=== PATIENT | male | born 1950 | race Caucasian/White ===

== ENCOUNTER → 2017-09-19 09:34 | Outpatient (CLI) | payer MEDICARE, BC, SELFPAY ==
[2017-09-19 10:16] LABS: BUN Creatinine Ratio 21.3 (6-22); Blood Urea Nitrogen 17 mg/dL (9-20); Calcium 9.4 mg/dL (8.4-10.2); Carbon Dioxide 29 mmol/L (22-32); Chloride 101 mmol/L (98-107); Cholesterol 219 mg/dL (140-199); Estimated Glomerular Filt Rate > 60.0 mL/min (>60); Glucose 115 mg/dL (80-110); HDL Cholesterol 67 mg/dL (40-60); HEMOLYSIS < 15 (0-50); LDL Cholesterol Calculated 113 mg/dL (<100); Potassium 4.6 mmol/L (3.4-5.1); Sodium 141 mmol/L (137-145); Triglycerides 193 mg/dL (35-150); Uric Acid 5.6 mg/dL (3.5-8.5)
== END ==
PROVIDERS: PCP Physician Assistant; Visit Provider Physician Assistant
DX: I10 Essential (primary) hypertension (principal); E78.2 Mixed hyperlipidemia; M10.00 Idiopathic gout, unspecified site
CPT/HCPCS: 36415; 80048; 80061; 84550

== ENCOUNTER → 2017-09-27 08:18 | Outpatient (CLI) | payer MEDICARE, BC, SELFPAY ==
--- NOTE | 2017-09-27 08:19 | DI.ECHO.S_ITS ---
[facility] +---------+ : : [address] : [address] : : : : [id number] : : : : Phone: [phone]+ Echocardiogram Report + + :Name: YAO MCFADDEN Study Date: 09/27/2017 Height: 71 in : :[facility] Exam Location: [facility] Weight: 224 lb : : Gender: Male BSA: 2.2 m2 : :: 1950 Age: 67 yrs BP: 162/78 mmHg: :Reason For Study: HTN, MURMUR : : Performed By: Shamar Vazquez : :Referring: TAYLOR BAEZ : + + Interpretation Summary The study quality was technically difficult. The ejection fraction is estimated to be 60-65%. The left atrium is mildly dilated. There is mild mitral regurgitation. The ascending aorta is mildly enlarged. Procedure: A two-dimensional transthoracic echocardiogram with color flow and Doppler was performed. The study quality was technically difficult. There is no prior echocardiogram noted for this patient. The patient was in normal sinus rhythm during the exam. Left Ventricle: The left ventricle is normal in size. There is normal left ventricular wall thickness. The ejection fraction is estimated to be 60-65%. There are no obvious focal wall motion abnormalities noted but poor endocardial definition reduces the sensitivity for the detection of such. Right Ventricle: The right ventricle is normal in size and function. Atria: The left atrium is mildly dilated. Right atrial size is normal. The interatrial septum is intact with no evidence for an atrial septal defect. Mitral Valve: The mitral valve is grossly normal. There is mild mitral regurgitation. PISA could not be reliably performed due to 'poor color doppler quality'. Aortic Valve: The aortic valve is grossly normal. There is no aortic valve stenosis. No aortic regurgitation is present. Tricuspid Valve: The tricuspid valve is not well visualized, but is grossly normal. There is trace tricuspid regurgitation. Pulmonary artery pressures cannot be estimated because of the lack of a measurable TR jet velocity. Pulmonic Valve: The pulmonic valve is not well visualized. There is trace pulmonic regurgitation. Great Vessels: The aortic root is normal size. The ascending aorta is mildly enlarged. The pulmonary artery is normal size. The IVC is of normal diameter and collapses greater than 50% with a sniff. This suggests a low right atrial pressure of 3 mm Hg. Pericardium/ Pleura There is no pericardial effusion. There is no pleural effusion. MMode/2D Measurements & Calculations LVIDd: 4.9 cm Ao root diam: 3.7 cm LVIDs: 2.5 cm Aortic Jxn: 2.8 cm FS: 49.1 % asc Aorta Diam: 3.6 cm IVSd: 1.1 cm Ao Arch Diam (Prox Trans): 3.0 cm LVPWd: 0.96 cm LV walker. diameter/BSA (cm/m^2): 2.2 LV sys. diameter/BSA (cm/m^2): 1.1 LA dimension: 5.2 cm RA long axis: 4.5 cm LA A2 area: 21.4 cm2 RA area: 16.9 cm2 LA A4 area: 23.0 cm2 RA vol: 53.6 ml LA length (vol): 5.6 cm RA : 24.2 ml/m2 LA vol: 74.8 ml IVC diam: 1.3 cm LA vol index: 33.8 ml/m2 Doppler Measurements & Calculations Ao V2 max: 137.0 cm/sec MV E max cristiano: 84.4 cm/sec Ao V2 mean: 92.3 cm/sec MV A max cristiano: 99.9 cm/sec Ao max P.5 mmHg MV E/A: 0.85 Ao mean P.8 mmHg Med Peak E' Cristiano: 8.1 cm/sec Ao V2 VTI: 25.1 cm E/E' med: 10.5 Lat Peak E' Cristiano: 10.4 cm/sec E/E' lat: 8.1 E/e' average: 9.3 MV dec time: 0.19 sec PA V2 max: 89.9 cm/sec Pulm A Revs Cristiano: 34.3 cm/sec PA V2 mean: 66.5 cm/sec PA mean P.0 mmHg PA pr(Accel): 46.6 mmHg PA Accel Time: 0.08 sec Reading Physician:09:52 AM
== END ==
PROVIDERS: PCP Physician Assistant; Visit Provider Physician Assistant
DX: R01.1 Cardiac murmur, unspecified (principal); I10 Essential (primary) hypertension
CPT/HCPCS: 93306

== ENCOUNTER → 2017-11-20 07:03 | Outpatient (CLI) | payer MEDICARE, BC, SELFPAY ==
[2017-11-20 08:43] LABS: Alanine Aminotransferase 14 IU/L (21-72); Albumin Globulin Ratio 1.3 (1.0-2.8); Alkaline Phosphatase 67 U/L (38-126); Aspartate Aminotransferase 21 IU/L (17-59); BUN Creatinine Ratio 26.3 (6-22); Bilirubin Total 0.5 mg/dL (0.2-1.3); Blood Urea Nitrogen 21 mg/dL (9-20); Calcium 9.2 mg/dL (8.4-10.2); Carbon Dioxide 28 mmol/L (22-32); Chloride 103 mmol/L (98-107); Cholesterol 214 mg/dL (140-199); Estimated Glomerular Filt Rate > 60.0 mL/min (>60); Globulin 3.1 g/dL (1.7-4.1); Glucose 94 mg/dL (80-110); HDL Cholesterol 59 mg/dL (40-60); HEMOLYSIS < 15 (0-50); LDL Cholesterol Calculated 126 mg/dL (<100); Potassium 4.3 mmol/L (3.4-5.1); Sodium 140 mmol/L (137-145); Total Protein 7.1 g/dL (6.3-8.2); Triglycerides 144 mg/dL (35-150)
[2017-11-20 08:55] LABS: C-Reactive Protein Quant < 0.5 mg/dL (<1.0)
== END ==
PROVIDERS: PCP Physician Assistant; Visit Provider Internal Medicine Cardiovascular Disease
DX: E78.2 Mixed hyperlipidemia (principal)
CPT/HCPCS: 36415; 80053; 80061; 86140

== ENCOUNTER → 2018-06-11 08:14 | Outpatient (CLI) | payer MEDICARE, BC, SELFPAY ==
[2018-06-11 09:48] LABS: Alanine Aminotransferase 21 IU/L (21-72); Albumin 4.5 g/dL (3.5-5.0); Albumin Globulin Ratio 1.4 (1.0-2.8); Alkaline Phosphatase 74 U/L (38-126); Aspartate Aminotransferase 28 IU/L (17-59); BUN Creatinine Ratio 18.9 (6-22); Bilirubin Total 0.4 mg/dL (0.2-1.3); Blood Urea Nitrogen 17 mg/dL (9-20); Calcium 9.5 mg/dL (8.4-10.2); Carbon Dioxide 27 mmol/L (22-32); Chloride 101 mmol/L (98-107); Cholesterol 195 mg/dL (140-199); Estimated Glomerular Filt Rate > 60.0 mL/min (>60); Globulin 3.2 g/dL (1.7-4.1); Glucose 107 mg/dL (80-110); HDL Cholesterol 83 mg/dL (40-60); HEMOLYSIS < 15 (0-50); LDL Cholesterol Calculated 77 mg/dL (<100); Potassium 4.4 mmol/L (3.4-5.1); Sodium 138 mmol/L (137-145); Total Protein 7.7 g/dL (6.3-8.2); Triglycerides 173 mg/dL (35-150); Uric Acid 5.1 mg/dL (3.5-8.5)
[2018-06-11 10:35] LABS: Microalbumi Creatinin Ratio Ur 5.7 ug/mg CR (<30); Microalbumin Urine Random 0.7 mg/dL (0-1.6)
== END ==
PROVIDERS: PCP Physician Assistant; Visit Provider Physician Assistant
DX: E78.2 Mixed hyperlipidemia (principal); I10 Essential (primary) hypertension; R01.1 Cardiac murmur, unspecified; M10.00 Idiopathic gout, unspecified site
CPT/HCPCS: 36415; 80053; 80061; 82043; 82570; 84550

== ENCOUNTER → 2018-12-11 08:24 | Outpatient (CLI) | payer MEDICARE, BC, SELFPAY ==
[2018-12-11 09:58] LABS: Potassium 4.2 mmol/L (3.4-5.1)
[2018-12-11 10:00] LABS: Alanine Aminotransferase 20 IU/L (21-72); Albumin 4.4 g/dL (3.5-5.0); Albumin Globulin Ratio 1.3 (1.0-2.8); Alkaline Phosphatase 101 U/L (38-126); Aspartate Aminotransferase 36 IU/L (17-59); BUN Creatinine Ratio 18.8 (6-22); Bilirubin Total 0.6 mg/dL (0.2-1.3); Blood Urea Nitrogen 15 mg/dL (9-20); Calcium 9.3 mg/dL (8.4-10.2); Carbon Dioxide 28 mmol/L (22-32); Chloride 101 mmol/L (98-107); Cholesterol 189 mg/dL (140-199); Estimated Glomerular Filt Rate > 60.0 mL/min (>60); Globulin 3.5 g/dL (1.7-4.1); Glucose 106 mg/dL (80-110); HDL Cholesterol 68 mg/dL (40-60); HEMOLYSIS 26 (0-50); LDL Cholesterol Calculated 66 mg/dL (<100); Sodium 139 mmol/L (137-145); Total Protein 7.9 g/dL (6.3-8.2); Triglycerides 277 mg/dL (35-150); Uric Acid 4.7 mg/dL (3.5-8.5)
[2018-12-11 10:16] LABS: Creatinine Urine Random 110.8 mg/dL
[2018-12-11 10:22] LABS: Microalbumi Creatinin Ratio Ur 5.4 ug/mg CR (<30); Microalbumin Urine Random < 0.6 mg/dL (0-1.6)
[2018-12-11 10:26] LABS: Prostate Specific Antigen Scrn 0.457 ng/mL (0.1-4.0)
== END ==
PROVIDERS: PCP Physician Assistant; Visit Provider Physician Assistant
DX: E78.2 Mixed hyperlipidemia (principal); I10 Essential (primary) hypertension; M10.00 Idiopathic gout, unspecified site; Z12.5 Encounter for screening for malignant neoplasm of prostate
CPT/HCPCS: 36415; 80053; 80061; 82043; 82570; 84550; G0103

== ENCOUNTER → 2018-12-12 11:38 | Outpatient (CLI) | payer MEDICARE, BC, SELFPAY ==
[2018-12-14 17:34] LABS: Fecal Immunochemical Test DETECTED (NOT DETECTED)
== END ==
PROVIDERS: PCP Physician Assistant; Visit Provider Physician Assistant
DX: Z12.11 Encounter for screening for malignant neoplasm of colon (principal)
CPT/HCPCS: 82274

== ENCOUNTER → 2019-01-02 08:05 | Outpatient (CLI) | payer MEDICARE, BC, SELFPAY ==
[2019-01-02 09:38] LABS: BUN Creatinine Ratio 23.8 (6-22); Blood Urea Nitrogen 19 mg/dL (9-20); Calcium 9.6 mg/dL (8.4-10.2); Carbon Dioxide 31 mmol/L (22-32); Chloride 97 mmol/L (98-107); Estimated Glomerular Filt Rate > 60.0 mL/min (>60); Glucose 111 mg/dL (80-110); HEMOLYSIS < 15 (0-50); Potassium 4.1 mmol/L (3.4-5.1); Sodium 137 mmol/L (137-145)
== END ==
PROVIDERS: PCP Physician Assistant; Visit Provider Internal Medicine Cardiovascular Disease
DX: I10 Essential (primary) hypertension (principal)
CPT/HCPCS: 36415; 80048

== ENCOUNTER → 2019-07-15 07:13 | Outpatient (CLI) | payer MEDICARE, BC, SELFPAY ==
[2019-07-15 08:06] LABS: Alanine Aminotransferase 17 IU/L (<50); Albumin 4.3 g/dL (3.5-5.0); Albumin Globulin Ratio 1.3 (1.0-2.8); Alkaline Phosphatase 79 U/L (38-126); Aspartate Aminotransferase 40 IU/L (17-59); BUN Creatinine Ratio 26.3 (6-22); Bilirubin Total 0.6 mg/dL (0.2-1.3); Blood Urea Nitrogen 20 mg/dL (9-20); Calcium 9.7 mg/dL (8.4-10.2); Carbon Dioxide 29 mmol/L (22-32); Chloride 102 mmol/L (98-107); Cholesterol 200 mg/dL (140-199); Estimated Glomerular Filt Rate > 60.0 mL/min (>60); Globulin 3.2 g/dL (1.7-4.1); Glucose 117 mg/dL (80-110); HDL Cholesterol 79 mg/dL (40-60); HEMOLYSIS 20 (0-50); LDL Cholesterol Calculated 75 mg/dL (<100); Potassium 4.4 mmol/L (3.4-5.1); Sodium 138 mmol/L (137-145); Total Protein 7.5 g/dL (6.3-8.2); Triglycerides 228 mg/dL (35-150)
== END ==
PROVIDERS: PCP Family Medicine; Referring Provider Internal Medicine Cardiovascular Disease; Visit Provider Internal Medicine Cardiovascular Disease
DX: E78.2 Mixed hyperlipidemia (principal)
CPT/HCPCS: 36415; 80053; 80061

== ENCOUNTER → 2020-08-22 07:52 | Outpatient (CLI) | payer MEDICARE, BC, SELFPAY ==
[2020-08-22 09:41] LABS: Alanine Aminotransferase 14 IU/L (<50); Albumin 4.1 g/dL (3.5-5.0); Albumin Globulin Ratio 1.3 (1.0-2.8); Alkaline Phosphatase 74 U/L (38-126); Aspartate Aminotransferase 33 IU/L (17-59); BUN Creatinine Ratio 19.5 (6-22); Bilirubin Total 0.4 mg/dL (0.2-1.3); Blood Urea Nitrogen 16 mg/dL (9-20); Calcium 9.5 mg/dL (8.4-10.2); Carbon Dioxide 28 mmol/L (22-32); Chloride 102 mmol/L (98-107); Cholesterol 198 mg/dL (140-199); Estimated Glomerular Filt Rate > 60.0 mL/min (>60); Globulin 3.1 g/dL (1.7-4.1); Glucose 108 mg/dL (80-110); HDL Cholesterol 72 mg/dL (40-60); HEMOLYSIS < 15 (0-50); LDL Cholesterol Calculated 81 mg/dL (<100); Potassium 3.8 mmol/L (3.4-5.1); Sodium 139 mmol/L (137-145); Total Protein 7.2 g/dL (6.3-8.2); Triglycerides 226 mg/dL (35-150)
== END ==
PROVIDERS: PCP Family Medicine; Referring Provider Internal Medicine Cardiovascular Disease; Visit Provider Internal Medicine Cardiovascular Disease
DX: E78.2 Mixed hyperlipidemia (principal)
CPT/HCPCS: 36415; 80053; 80061

== ENCOUNTER → 2021-11-13 07:47 | Outpatient (CLI) | payer MEDICARE, BC, SELFPAY ==
[2021-11-13 09:58] LABS: Alanine Aminotransferase 15 IU/L (<50); Albumin 3.9 g/dL (3.5-5.0); Albumin Globulin Ratio 1.4 (1.0-2.8); Alkaline Phosphatase 71 U/L (38-126); Aspartate Aminotransferase 32 IU/L (17-59); BUN Creatinine Ratio 21.3 (6-22); Bilirubin Total 0.4 mg/dL (0.2-1.3); Blood Urea Nitrogen 17 mg/dL (9-20); Calcium 8.9 mg/dL (8.4-10.2); Carbon Dioxide 29 mmol/L (22-32); Chloride 102 mmol/L (98-107); Cholesterol 172 mg/dL (140-199); Estimated Glomerular Filt Rate > 60 mL/min (>60); Globulin 2.7 g/dL (1.7-4.1); Glucose 97 mg/dL (80-110); HDL Cholesterol 70 mg/dL (40-60); HEMOLYSIS < 15 (0-50); LDL Cholesterol Calculated 80 mg/dL (<100); Potassium 4.2 mmol/L (3.4-5.1); Sodium 138 mmol/L (137-145); Total Protein 6.6 g/dL (6.3-8.2); Triglycerides 109 mg/dL (35-150); Uric Acid 5.7 mg/dL (3.5-8.5)
== END ==
PROVIDERS: PCP Family Medicine; Referring Provider Internal Medicine Cardiovascular Disease; Visit Provider Internal Medicine Cardiovascular Disease
DX: I10 Essential (primary) hypertension (principal); E78.2 Mixed hyperlipidemia
CPT/HCPCS: 36415; 80053; 80061; 84550

== ENCOUNTER → 2022-11-22 10:26 | Outpatient (CLI) | payer MEDICARE, BC, SELFPAY ==
[2022-11-22 11:20] LABS: Alanine Aminotransferase 18 IU/L (<50); Albumin 4.2 g/dL (3.5-5.0); Albumin Globulin Ratio 1.3 (1.0-2.8); Alkaline Phosphatase 89 U/L (38-126); Aspartate Aminotransferase 38 IU/L (17-59); BUN Creatinine Ratio 20.5 (6-22); Bilirubin Total 0.6 mg/dL (0.2-1.3); Blood Urea Nitrogen 15 mg/dL (9-20); Calcium 8.8 mg/dL (8.4-10.2); Carbon Dioxide 28 mmol/L (22-32); Chloride 101 mmol/L (98-107); Cholesterol 180 mg/dL (140-199); Estimated Glomerular Filt Rate > 60 mL/min (>60); Globulin 3.2 g/dL (1.7-4.1); Glucose 113 mg/dL (80-110); HDL Cholesterol 82 mg/dL (40-60); HEMOLYSIS < 15 (0-50); LDL Cholesterol Calculated 64 mg/dL (<100); Potassium 3.6 mmol/L (3.4-5.1); Sodium 136 mmol/L (137-145); Total Protein 7.4 g/dL (6.3-8.2); Triglycerides 169 mg/dL (35-150)
== END ==
PROVIDERS: Referring Provider Internal Medicine Cardiovascular Disease; Visit Provider Internal Medicine Cardiovascular Disease
DX: I10 Essential (primary) hypertension (principal)
CPT/HCPCS: 36415; 80053; 80061

== ENCOUNTER → 2022-12-07 07:18 | Outpatient (CLI) | payer MEDICARE, BC, SELFPAY ==
[2022-12-07 08:05] LABS: BUN Creatinine Ratio 23.3 (6-22); Blood Urea Nitrogen 17 mg/dL (9-20); Calcium 9.1 mg/dL (8.4-10.2); Carbon Dioxide 27 mmol/L (22-32); Chloride 102 mmol/L (98-107); Estimated Glomerular Filt Rate > 60 mL/min (>60); Glucose 105 mg/dL (80-110); HEMOLYSIS < 15 (0-50); Sodium 138 mmol/L (137-145)
== END ==
PROVIDERS: Referring Provider Internal Medicine Cardiovascular Disease; Visit Provider Internal Medicine Cardiovascular Disease
DX: I10 Essential (primary) hypertension (principal)
CPT/HCPCS: 36415; 80048

== ENCOUNTER → 2022-12-19 08:05 | Outpatient (CLI) | payer MEDICARE, BC, SELFPAY ==
--- NOTE | 2022-12-19 | DI.ECHO.S_ITS ---
[facility]---------+ [facility] +---------+ : : [address] : : : : [id number] : : : : Phone: [phone]+ Echocardiogram Report + + :Name: YAO MCFADDEN Study Date: 12/19/2022 Height: 71 in : :[facility] ReadingLocation: Weight: 213 lb : : Gender: Male BSA: 2.2 m2 : :: 1950 Age: 72 yrs BP: 138/79 mmHg: :Reason For Study: MITRAL INSUFFICIENCY : :Ordering Physician: : :KEZIA AGUILA Performed By: Elizabeth Ace : :Referring: KEZIA AGUILA : + + Interpretation Summary The left ventricle is normal in size and wall thickness. The left ventricular ejection fraction is normal. The ejection fraction is estimated to be 60-65%. Diastolic parameters suggest a pseudonormalization pattern, consistent with probable elevated filling pressures. Previously relaxation type of diastolic dysfunction. The right ventricle is at the upper limits of normal in size. The right ventricular systolic function is normal. There is mild to moderate mitral regurgitation. Previously mild to moderate. The IVC is of normal diameter and collapses greater than 50% with a sniff. This suggests a low right atrial pressure of 3 mm Hg. Procedure: A two-dimensional transthoracic echocardiogram with color flow and Doppler was performed. The study quality was technically difficult. Comparison is made with the echocardiogram of 09/27/2017. The patient was in sinus rhythm with heart rates between 63-74 bpm during the exam. Left Ventricle: The left ventricle is normal in size and wall thickness. There is no thrombus. The ejection fraction is estimated to be 60-65%. The left ventricular ejection fraction is normal. There are no focal wall motion abnormalities. Diastolic parameters suggest a pseudonormalization pattern, consistent with probable elevated filling pressures. Right Ventricle: The right ventricle is at the upper limits of normal in size. The right ventricular systolic function is normal. Atria: The left atrium is moderately dilated. The left atrium has mildly increased in size since the prior echo exam. Right atrial size is normal. There is no Doppler evidence for an interatrial shunt. Mitral Valve: The mitral valve is not well visualized. The mitral valve leaflets appear mildly thickened, but open well. There is mild mitral annular calcification. There is mild to moderate mitral regurgitation. Aortic Valve: The aortic valve is not well visualized. The aortic valve opens well. The aortic valve is trileaflet. There is no aortic valve stenosis. No aortic regurgitation is present. Tricuspid Valve: The tricuspid valve is not well visualized, but is grossly normal. There is mild tricuspid regurgitation. Pulmonary artery pressures cannot be estimated because of the lack of a measurable TR jet velocity. Pulmonic Valve: The pulmonic valve is not well seen, but is grossly normal. There is mild pulmonic regurgitation. Great Vessels: The aortic root is normal size. The dimensions of the ascending aorta are normal. The IVC is of normal diameter and collapses greater than 50% with a sniff. This suggests a low right atrial pressure of 3 mm Hg. Pericardium/ Pleura There is no pericardial effusion. There is no pleural effusion. MMode/2D Measurements & Calculations LVIDd: 5.2 cm LVOT diam: 2.4 cm LVIDs: 3.4 cm Ao root diam: 3.5 cm FS: 34.4 % asc Aorta Diam: 3.4 cm IVSd: 0.71 cm Ao Arch Diam (Prox Trans): 3.2 cm LVPWd: 0.70 cm LV walker. diameter/BSA (cm/m^2): 2.4 LV sys. diameter/BSA (cm/m^2): 1.6 LA A2 area: 24.4 cm2 RA long axis: 4.7 cm LA A4 area: 25.2 cm2 RA area: 16.0 cm2 LA length (vol): 5.8 cm RA vol: 45.9 ml LA vol: 90.5 ml RA : 21.2 ml/m2 LA vol index: 41.8 ml/m2 IVC diam: 1.3 cm RVD1 (basal): 4.0 cm TAPSE: 2.3 cm Doppler Measurements & Calculations Ao V2 max: 112.8 cm/sec LVOT Max Cristiano: 103.9 cm/sec Ao V2 mean: 81.1 cm/sec LV V1 max P.3 mmHg Ao max P.1 mmHg LV V1 VTI: 19.8 cm Ao mean P.0 mmHg GUANAKITO(I,D): 3.7 cm2 Ao V2 VTI: 24.5 cm GUANAKITO(V,D): 4.2 cm2 sev ratio: 0.81 GUANAKITO indexed to BSA (cm^2/m^2): 1.7 MV E max cristiano: 159.7 cm/sec PA pr(Accel): 25.9 mmHg MV A max cristiano: 85.3 cm/sec MV E/A: 1.9 Med Peak E' Cristiano: 6.3 cm/sec E/E' med: 25.2 Lat Peak E' Cristiano: 10.3 cm/sec E/E' lat: 15.5 E/e' average: 20.3 MV dec time: 0.24 sec MVA(VTI): 1.9 cm2 MV V2 mean: 94.9 cm/sec SV(LVOT): 89.9 ml MV mean P.5 mmHg MV V2 VTI: 47.5 cm Reading Physician:05:44 PM
== END ==
PROVIDERS: Referring Provider Internal Medicine Cardiovascular Disease; Visit Provider Internal Medicine Cardiovascular Disease
DX: I08.1 Rheumatic disorders of both mitral and tricuspid valves (principal)
CPT/HCPCS: 93306

== ENCOUNTER → 2023-11-17 09:26 | Outpatient (CLI) | payer MEDICARE, BC, SELFPAY ==
[2023-11-17 10:32] LABS: Alanine Aminotransferase 14 IU/L (<50); Albumin 4.1 g/dL (3.5-5.0); Alkaline Phosphatase 81 U/L (38-126); Aspartate Aminotransferase 28 IU/L (17-59); BUN Creatinine Ratio 22.2 (6-22); Bilirubin Total 0.6 mg/dL (0.2-1.3); Blood Urea Nitrogen 18 mg/dL (9-20); Calcium 9.1 mg/dL (8.4-10.2); Carbon Dioxide 28 mmol/L (22-32); Chloride 104 mmol/L (98-107); Estimated Glomerular Filt Rate > 60 mL/min (>60); Glucose 111 mg/dL (80-110); HEMOLYSIS < 15 (0-50); Potassium 3.9 mmol/L (3.4-5.1); Sodium 137 mmol/L (137-145); Uric Acid 5.1 mg/dL (3.5-8.5)
[2023-11-17 10:33] LABS: Albumin Globulin Ratio 1.4 (1.0-2.8); Cholesterol 170 mg/dL (140-199); Globulin 2.9 g/dL (1.7-4.1); HDL Cholesterol 79 mg/dL (40-60); LDL Cholesterol Calculated 67 mg/dL (<100); Triglycerides 118 mg/dL (35-150)
[2023-11-17 11:22] LABS: Hep C Virus Ab w/Reflex Quant REACTIVE s/c (NEGATIVE)
== END ==
PROVIDERS: PCP Family Medicine; Referring Provider Family Medicine; Visit Provider Family Medicine
DX: I10 Essential (primary) hypertension (principal); E78.2 Mixed hyperlipidemia; M10.00 Idiopathic gout, unspecified site; Z11.59 Encounter for screening for other viral diseases
CPT/HCPCS: 36415; 80053; 80061; 84550; 86803; 87522

== ENCOUNTER → 2024-06-12 06:40 | Outpatient (CLI) | payer MEDICARE, SELFPAY ==
[2024-06-12 08:51] LABS: Hematocrit 39.6 % (41-53); Hemoglobin 13.4 g/dL (13.5-17.5); Mean Corpuscular HGB Conc 33.9 % (30-36); Mean Corpuscular Hemoglobin 30.4 PG (26-34); Mean Corpuscular Volume 89.7 fL (80-100); Platelet Count 307 X10^3/uL (150-400); Red Blood Cell Count 4.42 X10^6/uL (4.5-5.9); Red Cell Distribution Width 14.2 % (11.6-14.8); White Blood Cell Count 8.1 X10^3/uL (4.5-11.0)
[2024-06-12 09:16] LABS: Alanine Aminotransferase 16 IU/L (<50); Albumin Globulin Ratio 1.5 (1.0-2.8); Alkaline Phosphatase 69 U/L (38-126); Aspartate Aminotransferase 33 IU/L (17-59); BUN Creatinine Ratio 15.9 (6-22); Bilirubin Total 0.5 mg/dL (0.2-1.3); Blood Urea Nitrogen 14 mg/dL (9-20); Carbon Dioxide 31 mmol/L (22-32); Chloride 101 mmol/L (98-107); Cholesterol 186 mg/dL (140-199); Estimated Glomerular Filt Rate > 60 mL/min (>60); Globulin 2.7 g/dL (1.7-4.1); Glucose 96 mg/dL (80-110); HDL Cholesterol 82 mg/dL (40-60); HEMOLYSIS < 15 (0-50); LDL Cholesterol Calculated 82 mg/dL (<100); Potassium 4.4 mmol/L (3.4-5.1); Sodium 139 mmol/L (137-145); Total Protein 6.7 g/dL (6.3-8.2); Triglycerides 110 mg/dL (35-150)
== END ==
PROVIDERS: PCP Family Medicine; Referring Provider Physician Assistant; Visit Provider Physician Assistant
DX: I10 Essential (primary) hypertension (principal); E78.5 Hyperlipidemia, unspecified; I34.0 Nonrheumatic mitral (valve) insufficiency; G47.33 Obstructive sleep apnea (adult) (pediatric)
CPT/HCPCS: 36415; 80053; 80061; 85027

== ENCOUNTER 2025-03-18 12:15 | Inpatient (IN) | payer MEDICARE, BC, SELFPAY ==
[2025-03-18] VITALS (15 sets, daily range): BP systolic 127–193; BP diastolic 66–132; PULSE 87–115; RESP 14–18; TEMP 36.2–36.7; O2SAT 92–99; BMI 26.6
--- NOTE | 2025-03-18 12:43 | DI.CT.S_ITS ---
PROCEDURE: CT ABDOMEN PELVIS W CON INDICATIONS: ?bowel blockage TECHNIQUE: After the administration of intravenous contrast, axial sections acquired from the lung bases to the pubic symphysis. Coronal and sagittal reformats were performed. For radiation dose reduction, the following was used: automated exposure control, adjustment of mA and/or kV according to patient size. COMPARISON: None. FINDINGS: Image quality: Diagnostic. Lower Chest: Bibasilar scattered scarring/atelectasis is seen. Heart size is mildly enlarged with pacemaker leads seen. No significant pericardial effusion. Mild distal esophageal wall thickening with small hiatal hernia. ABDOMEN: Liver: No solid mass. Gallbladder: no radiopaque gallstones or wall thickening. Biliary ducts: No biliary dilation. Pancreas: No ductal dilation. Spleen: Size is within normal limits. Adrenal Glands: No adrenal nodules. Kidneys and Ureters: No hydronephrosis. No solid mass. No complex renal cystic lesion which requires follow up. Stomach and Bowel: Fluid distension of stomach and small bowel loops is seen with a few air-fluid levels and suggestion of caliber change involving distal small bowel loops in left lower quadrant near midline best seen on series 2, image 107 concerning for focal high-grade small bowel obstruction. Air distended colon loops are noted extending to left inguinal herniation sac with wall thickening and narrowing of the lumen within the herniation sac and decompressed more distal portion of the sigmoid colon. Significant fecal distension of the distal sigmoid colon and rectum is seen. No abscess collection. Peritoneum: Small amount of peritoneal free fluid. No free air. Ventral Wall: No significant ventral hernia. Abdominal Nodes: No retroperitoneal or mesenteric adenopathy by size criteria. Vessels: Aorta and inferior vena cava are normal in size. PELVIS: Pelvic Organs: Unremarkable. Bladder: No bladder wall thickening, accounting for underdistention. Pelvic Nodes: No enlarged lymph nodes. Miscellaneous: Moderate size left inguinal hernia is seen containing a segment of sigmoid colon loop with small amount of ascites fluid and mesenteric fat stranding within the herniation sac. Bones: No aggressive osseous abnormality. Degenerative disc disease throughout lower thoracic and lumbar spine is seen. IMPRESSION: 1. Finding is concerning for high-grade distal small-bowel obstruction involving small bowel loops in left lower quadrant just lateral to the midline. 2. Moderate to large size left inguinal hernia containing a segment of sigmoid colon loop with wall thickening and caliber change within the herniation sac concerning for incarceration suggest clinical correlation. 3. Fecal impaction in distal sigmoid colon and rectum. Small amount of ascites fluid. No gross free air. No abscess collection. Dictated by: Chivo Forman M.D. on 03/18/2025 at 13:39 Approved by: Chivo Forman M.D. on 03/18/2025 at 13:47
[2025-03-18 13:05] LABS: Add Manual Diff / Slide Review NO; Hematocrit 41.3 % (41-53); Hemoglobin 14.0 g/dL (13.5-17.5); Lymphocytes Absolute Auto 1000 /uL (1100-4500); Mean Corpuscular HGB Conc 33.9 % (30-36); Mean Corpuscular Hemoglobin 30.1 PG (26-34); Mean Corpuscular Volume 88.7 fL (80-100); Platelet Count 487 X10^3/uL (150-400)
[2025-03-18 13:18] LABS: Alanine Aminotransferase 14 IU/L (<50); Albumin 4.6 g/dL (3.5-5.0); Albumin Globulin Ratio 1.1 (1.0-2.8); Alkaline Phosphatase 106 U/L (38-126); Blood Urea Nitrogen 25 mg/dL (9-20); Calcium 9.6 mg/dL (8.4-10.2); Carbon Dioxide 23 mmol/L (22-32); Chloride 94 mmol/L (98-107); Estimated Glomerular Filt Rate > 60 mL/min (>60); Globulin 4.1 g/dL (1.7-4.1); Glucose 152 mg/dL (70-99); HEMOLYSIS < 15 (0-50); Lactate (Lactic Acid) 1.7 mmol/L (0.7-2.1); Lipase 89 U/L (23-300); Potassium 4.0 mmol/L (3.4-5.1); Sodium 136 mmol/L (137-145); Total Protein 8.7 g/dL (6.3-8.2)
--- NOTE | 2025-03-18 14:03 | ED_ITS ---
HPI - Abdominal Pain <Gentry Sampson PA-C - Last Filed: 03/18/25 16:20> General Chief Complaint: Abdominal Pain Stated Complaint: Bowel Blockage for 5 days Time Seen by Provider: 03/18/25 12:42 Source: patient Mode of arrival: Ambulatory History of Present Illness HPI narrative: 74-year-old male with past medical history hypertension, hyperlipidemia, gout, sleep apnea presents to the ED with 1 week of no bowel movements. Patient states that he feels very bloated, has abdominal soreness, feels like he needs to have a bowel movement but is unable to. Patient is also endorsing nausea, vomiting. No fever, chills, chest pain, shortness of breath, dysuria, lightheadedness, dizziness, syncope. Patient also complains of a lower abdominal bulge which he thinks might be a hernia which has been feeling swollen for the last several weeks. Patient has taken senna and milk of magnesia with no relief. Related Data Home Medications ?Medication ?Instructions ?Recorded ?Confirmed multivitamin (Multiple Vitamins 1 tab PO QDAY #0 tabs 11/04/15 03/19/25 tablet) [VITAMIN D3] 1,000 iu PO SEE INSTRUCTIONS ##0 06/07/17 03/19/25 ascorbate calcium (vitamin C) 500 500 mg PO DAILY 09/0803/19/25 mg tablet Calcium See Rx Instructions .Route . COMPLEX 12/11/18 03/19/25 aspirin 81 mg tablet,delayed 81 mg PO DAILY 12/11/1805/20/24 release (Adult Low Dose Aspirin) vitamin B complex 1 tab PO .every other day 03/19/25 Previous Rx's ?Medication ?Instructions ?Recorded allopurinol 300 mg tablet 300 mg PO DAILY #90 tabs amlodipine 10 mg tablet 10 mg PO Q DAY #90 tabs 11/08 09/01 chlorthalidone 25 mg tablet 12.5 mg (1/2 x 25 mg) PO D AILY 11/22/24 blood pressure #45 tabs metoprolol succinate 50 mg 50 mg PO QDAY #90 tabs 11/08 09/01 tablet,extended release 24 hr (Toprol XL) rosuvastatin 10 mg tablet (Crestor) 10 mg PO DAILY #90 tabs 11/22/24 oxycodone 5 mg tablet 5 mg PO Q8H PRN pain #20 tab s 03/23/25 potassium chloride 10 mEq 10 meq PO DAILY #90 tabs tablet,extended release Allergies Allergy/AdvReac Type Severity Reaction Status Date / Time ANNY Inhibitors (ANNY Allergy Severe Angioedema Verified 03/18/25 12:35 INHIBITORS) of head and neck venom-honey bee (BEE VENOM Allergy Severe SWELLING Verified 03/18/25 12:35 (HONEY BEE)) AND REDNESS Review of Systems <Gentry Sampson PA-C - Last Filed: 03/18/25 16:20> Constitutional Constitutional: Denies chills, Denies fatigue, Denies fever(s), Denies frequent falls, Denies lethargy and Denies weakness Eyes Eyes: Denies change in vision, Denies eye discharge, Denies irritation and Denies loss of vision ENT Ears, Nose, Mouth, and Throat: Denies change in voice, Denies dizziness, Denies neck pain, Denies sore throat and Denies throat swelling Cardiovascular Cardiovascular: Denies chest pain, Denies irregular heart rhythm, Denies lightheadedness, Denies palpitations, Denies dyspnea, Denies dyspnea on exertion and Denies orthopnea Respiratory Respiratory: Denies cough, Denies dyspnea, Denies dyspnea on exertion and Denies wheezing Gastrointestinal Gastrointestinal: Denies abdominal pain, Reports bloating, Denies change in bowel habits, Reports constipation, Denies diarrhea, Reports nausea and Reports vomiting Musculoskeletal Musculoskeletal: Denies neck pain and Denies numbness Integumentary/Breasts Skin/Breast: Denies pruritus, Denies erythema, Denies rash and Denies wounds Neurologic Neurologic: Denies behavioral changes, Denies confusion, Denies dizziness, Denies frequent falls, Denies loss of vision, Denies numbness and Denies weakness Psychiatric Psychiatric: Denies anxiety, Denies behavioral changes, Denies confusion, Denies depression, Denies homicidal ideation and Denies suicidal ideation Endocrine Endocrine: Denies fatigue, Denies flushing and Denies palpitations Hematologic/Lymphatic Hematologic/Lymphatic: Denies easy bruising Allergic/Immunologic Allergic/Immunologic: Denies urticaria, Denies throat swelling and Denies wheezing Patient History <Gentry Sampson PA-C - Last Filed: 03/18/25 16:20> Medical History Mitral valve regurgitation Acne (~1964) Fever (~1972) Allergies (~1980) Mumps (~1953) Measles (~1952) Chicken pox (~1952) Peptic ulcer disease (~1969) Skin cancer (~2006) Basal cell carcinoma (2017) Melanoma (Unknown) Hypertension (Unknown) Hyperlipemia (Unknown) Idiopathic gout (02/11/15) Mixed hyperlipidemia (02/11/15) Essential hypertension (02/11/15) Surgical History Hx of shoulder surgery (~1971) Family History Father Peritonitis Grandfather No problems noted. Grandmother No problems noted. Mother Dementia Grandfather History of heart disease Grandmother No problems noted. Social History household members: spouse Tobacco: How many years used: 30 second hand exposure: Yes (sometimes, but I try to avoid it.) alcohol intake: current substance use type: does not use Smoking Status: Former smoker tobacco type: cigarettes Exam <Gentry Sampson PA-C - Last Filed: 03/18/25 16:20> Narrative Exam Narrative: Const General:?cooperative, healthy appearing and comfortable [facility] Head:?normal to inspection Ears:?hearing grossly normal bilaterally Nose:?external nose normal Face and sinus:?normal facial exam and sinuses nontender Mouth:?oral mucosae normal Throat:?posterior oropharynx normal Eyes General:?appearance normal, both eyes and all related structures Neck Neck:?normal visual inspection and no lymphadenopathy noted Resp Effort & Inspection:?normal respiratory effort Auscultation:?clear to auscultation bilaterally Cardio Rate:?regular rate Rhythm:?regular rhythm GI Abdomen is soft, distended, with mild generalized tenderness to palpation. There is a palpable left-sided inguinal hernia. Neuro General:?patient alert, patient awake and patient oriented x3 Initial Vital Signs Initial Vital Signs: Vital Signs Temperature 97.2 F L 03/18/25 12:33 Pulse Rate 88 03/18/25 12:33 Respiratory Rate 17 03/18/25 12:33 Blood Pressure 154/87 H 03/18/25 12:33 Pulse Oximetry 98 03/18/25 12:33 Oxygen Delivery Method Room Air 03/18/25 12:33 <Pankaj Burton MD - Last Filed: 03/25/25 07:10> Initial Vital Signs Initial Vital Signs: Vital Signs Temperature 97.2 F L 03/18/25 12:33 Pulse Rate 88 03/18/25 12:33 Respiratory Rate 17 03/18/25 12:33 Blood Pressure 154/87 H 03/18/25 12:33 Pulse Oximetry 98 03/18/25 12:33 Oxygen Delivery Method Room Air 03/18/25 12:33 Course <Gentry Sampson PA-C - Last Filed: 03/18/25 16:20> Orders Ordered: Discontinued Medications Acetaminophen (Acetaminophen 325 Mg Tablet) 650 mg PO Q6HR PRN PRN Reason: Pain, Mild (1-3) Last Admin: 03/21/25 20:31 Dose: 650 mg Documented By: AT Allopurinol (Allopurinol 100 Mg Tablet) 300 mg PO DAILY [facility] Last Admin: 03/23/25 09:11 Dose: 300 mg Documented By: Admin: 03/22/25 08:56 Dose: 300 mg Documented By: CLL Amlodipine Besylate (Amlodipine 5 Mg Tablet) 10 mg PO DAILY [facility] Aspirin (Aspirin Ec 81 Mg Tablet) 81 mg PO DAILY [facility] Atorvastatin Calcium (Atorvastatin 20 Mg Tablet) 20 mg PO BEDTIME [facility] Last Admin: 03/22/25 20:53 Dose: 20 mg Documented By: Admin: 03/21/25 20:31 Dose: 20 mg Documented By: AT Benzocaine (Dermoplast Centre 20% 60 Ml) 60 spray TOP NOW ONE Stop: 03/18/25 16:18 Last Admin: 03/19/25 11:23 Dose: Not Given Documented By: ZH Benzocaine (Benzocaine/Menthol 1 Tommy Pkt) 1 each PO PRN PRN PRN Reason: Sore Throat Benzocaine/Butamben/Tetracaine HCl (Tetracaine/Benzocaine/Butamben (Cetacaine) Bottle) 1 spray TOP NOW ONE Stop: 03/18/25 16:24 Last Admin: 03/18/25 16:30 Dose: 1 spray Documented By: TITA Chlorthalidone (Chlorthalidone 25 Mg Tablet) 12.5 mg PO DAILY [facility] Last Admin: 03/23/25 09:09 Dose: 12.5 mg Documented By: Admin: 03/22/25 15:03 Dose: 12.5 mg Documented By: JAN Dexamethasone (Dexamethasone 10 Mg/Ml Vial) 8 mg IV NOW PRN PRN Reason: Nausea And Vomiting Fentanyl (Fentanyl 100 Mcg/2 Ml Inj) 0 mcg IV Q5MIN PRN PRN Reason: Pain, Severe (7-10) Heparin Sodium (Porcine) (Heparin 5,000 Unit/Ml Vial) 5,000 unit SUBCUT BID [facility] Last Admin: 03/23/25 09:09 Dose: 5,000 unit Documented By: Admin: 03/22/25 20:53 Dose: 5,000 unit Documented By: Admin: 03/22/25 08:57 Dose: 5,000 unit Documented By: Admin: 03/21/25 20:32 Dose: 5,000 unit Documented By: LAKEISHA Hydromorphone HCl (Hydromorphone 1 Mg/Ml Syringe) 0 mg IV Q5MIN PRN PRN Reason: Pain, Moderate (4-6) Metronidazole (Flagyl) 500 mg in 100 mls @ 100 mls/hr IV NOW ONE Stop: 03/18/25 15:15 Last Infusion: 03/18/25 18:16 Dose: Infused Documented By: Admin: 03/18/25 15:45 Dose: 100 mls/hr Documented By: TITA Ceftriaxone Sodium 2,000 mg/ (Sodium Chloride) 100 mls @ 200 mls/hr IV NOW ONE Stop: 03/18/25 14:17 Last Infusion: 03/18/25 15:44 Dose: Infused Documented By: Admin: 03/18/25 15:31 Dose: 200 mls/hr Documented By: ITTA Sodium Chloride (Normal Saline 0.9%) 1,000 mls @ 1,000 mls/hr IV BOLUS ONE Stop: 03/18/25 15:18 Last Infusion: 03/18/25 15:44 Dose: Infused Documented By: Admin: 03/18/25 14:45 Dose: 1,000 mls/hr Documented By: TITA Sodium Chloride (Normal Saline 0.9%) 1,000 mls @ 100 mls/hr IV CONT [facility] Last Infusion: 03/19/25 13:46 Dose: Infused Documented By: Admin: 03/19/25 02:15 Dose: 100 mls/hr Documented By: Infusion: 03/19/25 02:10 Dose: Infused Documented By: Admin: 03/18/25 16:10 Dose: 100 mls/hr Documented By: TITA Piperacillin Sod/Tazobactam (Sod 3.375 gm/ Sodium Chloride) 100 mls @ 25 mls/hr IV Q8H [facility] Last Infusion: 03/19/25 11:22 Dose: Infused Documented By: Admin: 03/19/25 07:09 Dose: 25 mls/hr Documented By: MALACHI POTASSIUM CHLORIDE IN WATER (Potassium Cl 10 Meq/100 Ml Kari) 10 meq in 100 mls @ 100 mls/hr IV Q1H [facility] Stop: 03/19/25 13:14 Last Admin: 03/19/25 13:38 Dose: Not Given Documented By: Admin: 03/19/25 13:38 Dose: Not Given Documented By: Admin: 03/19/25 13:38 Dose: Not Given Documented By: Admin: 03/19/25 13:37 Dose: Not Given Documented By: FÁTIMA Lactated Ringer's (Lactated Ringers) 1,000 mls @ 84 mls/hr IV CONT [facility] Last Infusion: 03/19/25 13:46 Dose: Infused Documented By: Admin: 03/19/25 12:56 Dose: 84 mls/hr Documented By: TEENA POTASSIUM CHLORIDE IN WATER (Potassium Cl 10 Meq/100 Ml Kari) 10 meq in 100 mls @ 100 mls/hr IV Q1H [facility] Stop: 03/19/25 17:59 Last Infusion: 03/19/25 15:06 Dose: Infused Documented By: Admin: 03/19/25 13:39 Dose: 100 mls/hr Documented By: FÁTIMA POTASSIUM CHLORIDE IN WATER (Potassium Cl 10 Meq/100 Ml Kari) 10 meq in 100 mls @ 100 mls/hr IV Q1H [facility] Stop: 03/19/25 17:14 Last Infusion: 03/19/25 18:56 Dose: Infused Documented By: Admin: 03/19/25 17:10 Dose: 100 mls/hr Documented By: Infusion: 03/19/25 17:07 Dose: Infused Documented By: Admin: 03/19/25 16:07 Dose: 100 mls/hr Documented By: Infusion: 03/19/25 16:02 Dose: Infused Documented By: Admin: 03/19/25 15:02 Dose: 100 mls/hr Documented By: FÁTIMA Sodium Chloride (Normal Saline 0.9%) 1,000 mls @ 100 mls/hr IV CONT [facility] Last Infusion: 03/23/25 09:49 Dose: Infused Documented By: Admin: 03/23/25 09:12 Dose: 100 mls/hr Documented By: Infusion: 03/23/25 09:12 Dose: Infused Documented By: Admin: 03/22/25 23:26 Dose: 100 mls/hr Documented By: Infusion: 03/22/25 23:00 Dose: Infused Documented By: Admin: 03/22/25 13:00 Dose: 100 mls/hr Documented By: Infusion: 03/22/25 12:57 Dose: Infused Documented By: Admin: 03/22/25 02:57 Dose: 100 mls/hr Documented By: Infusion: 03/21/25 22:43 Dose: Infused Documented By: Admin: 03/21/25 12:43 Dose: 100 mls/hr Documented By: Infusion: 03/21/25 03:21 Dose: Infused Documented By: Admin: 03/20/25 17:21 Dose: 100 mls/hr Documented By: Infusion: 03/20/25 10:25 Dose: Infused Documented By: Admin: 03/20/25 00:25 Dose: 100 mls/hr Documented By: Infusion: 03/20/25 00:23 Dose: Infused Documented By: Admin: 03/19/25 14:23 Dose: 100 mls/hr Documented By: PRIYA Piperacillin Sod/Tazobactam (Sod 3.375 gm/ Sodium Chloride) 100 mls @ 25 mls/hr IV Q8H [facility] Last Infusion: 03/23/25 10:06 Dose: Infused Documented By: Admin: 03/23/25 06:06 Dose: 25 mls/hr Documented By: Infusion: 03/23/25 03:12 Dose: Infused Documented By: Admin: 03/22/25 23:10 Dose: 25 mls/hr Documented By: Infusion: 03/22/25 19:15 Dose: Infused Documented By: Admin: 03/22/25 14:57 Dose: 25 mls/hr Documented By: Infusion: 03/22/25 11:54 Dose: Infused Documented By: Admin: 03/22/25 06:41 Dose: 25 mls/hr Documented By: Infusion: 03/22/25 02:53 Dose: Infused Documented By: Admin: 03/21/25 22:52 Dose: 25 mls/hr Documented By: Infusion: 03/21/25 20:32 Dose: Infused Documented By: Admin: 03/21/25 16:00 Dose: 25 mls/hr Documented By: Infusion: 03/21/25 12:21 Dose: Infused Documented By: Admin: 03/21/25 08:51 Dose: 25 mls/hr Documented By: Infusion: 03/21/25 04:54 Dose: Infused Documented By: Admin: 03/21/25 00:54 Dose: 25 mls/hr Documented By: Infusion: 03/20/25 21:20 Dose: Infused Documented By: Admin: 03/20/25 17:20 Dose: 25 mls/hr Documented By: Infusion: 03/20/25 09:20 Dose: Infused Documented By: Admin: 03/20/25 06:57 Dose: 25 mls/hr Documented By: Infusion: 03/20/25 02:36 Dose: Infused Documented By: Admin: 03/19/25 22:36 Dose: 25 mls/hr Documented By: Infusion: 03/19/25 19:24 Dose: Infused Documented By: Admin: 03/19/25 15:11 Dose: 25 mls/hr Documented By: FÁTIMA Piperacillin Sod/Tazobactam (Sod 3.375 gm/ Sodium Chloride) 100 mls @ 25 mls/hr IV Q8H [facility] Lactated Ringer's (Lactated Ringers) 1,000 mls @ 42 mls/hr IV CONT [facility] Last Infusion: 03/21/25 14:22 Dose: Infused Documented By: Admin: 03/20/25 11:35 Dose: 42 mls/hr Documented By: Infusion: 03/20/25 11:35 Dose: Infused Documented By: Admin: 03/20/25 09:20 Dose: 42 mls/hr Documented By: BON POTASSIUM CHLORIDE IN WATER (Potassium Cl 10 Meq/100 Ml Kari) 10 meq in 100 mls @ 100 mls/hr IV Q1H [facility] Stop: 03/20/25 14:44 Last Admin: 03/20/25 17:39 Dose: Not Given Documented By: Admin: 03/20/25 16:50 Dose: Not Given Documented By: Admin: 03/20/25 16:50 Dose: Not Given Documented By: Admin: 03/20/25 16:49 Dose: Not Given Documented By: PRIYA POTASSIUM CHLORIDE IN WATER (Potassium Cl 10 Meq/100 Ml Kari) 10 meq in 100 mls @ 100 mls/hr IV Q1H [facility] Stop: 03/20/25 19:59 Last Admin: 03/20/25 17:48 Dose: Not Given Documented By: FÁTIMA POTASSIUM CHLORIDE IN WATER (Potassium Cl 10 Meq/100 Ml Kari) 10 meq in 100 mls @ 100 mls/hr IV Q1H [facility] Stop: 03/20/25 21:59 Last Admin: 03/21/25 08:31 Dose: Not Given Documented By: Infusion: 03/20/25 22:35 Dose: Infused Documented By: Admin: 03/20/25 21:35 Dose: 100 mls/hr Documented By: Infusion: 03/20/25 20:35 Dose: Infused Documented By: Admin: 03/20/25 19:35 Dose: 100 mls/hr Documented By: Infusion: 03/20/25 19:26 Dose: Infused Documented By: Admin: 03/20/25 18:26 Dose: 100 mls/hr Documented By: FÁTIMA POTASSIUM CHLORIDE IN WATER (Potassium Cl 10 Meq/100 Ml Kari) 10 meq in 100 mls @ 100 mls/hr IV Q1H [facility] Stop: 03/21/25 01:59 Last Infusion: 03/21/25 02:04 Dose: Infused Documented By: Admin: 03/21/25 01:04 Dose: 100 mls/hr Documented By: MALACHI Lidocaine HCl (Lidocaine Viscous 2% 15 Ml Solution) 15 ml PO NOW ONE Stop: 03/18/25 14:46 Last Admin: 03/18/25 14:49 Dose: 15 ml Documented By: TITA Lorazepam (Lorazepam 2 Mg/Ml Inj) 1 mg IV NOW ONE Stop: 03/18/25 15:34 Last Admin: 03/18/25 15:40 Dose: 1 mg Documented By: TITA Lorazepam (Lorazepam 2 Mg/Ml Inj) 1 mg IV NOW ONE Stop: 03/18/25 15:59 Last Admin: 03/18/25 16:03 Dose: 1 mg Documented By: TITA Lorazepam (Lorazepam 2 Mg/Ml Inj) 0.5 mg IV Q6HR PRN PRN Reason: Anxiety Metoprolol Succinate (Metoprolol Er 50 Mg Tablet) 50 mg PO DAILY [facility] Last Admin: 03/23/25 09:12 Dose: 50 mg Documented By: Admin: 03/22/25 15:03 Dose: 50 mg Documented By: JAN Metoprolol Tartrate (Metoprolol Tartrate 5 Mg/5 Ml Inj) 5 mg IV NOW ONE Stop: 03/19/25 13:54 Last Admin: 03/19/25 14:17 Dose: Not Given Documented By: FÁTIMA Metoprolol Tartrate (Metoprolol Tartrate 5 Mg/5 Ml Inj) 5 mg IV NOW ONE Stop: 03/19/25 14:16 Last Admin: 03/19/25 14:18 Dose: 5 mg Documented By: PRIYA Metoprolol Tartrate (Metoprolol Tartrate 5 Mg/5 Ml Inj) 5 mg IV Q6H [facility] Last Admin: 03/19/25 16:38 Dose: Not Given Documented By: FÁTIMA Metoprolol Tartrate (Metoprolol Tartrate 5 Mg/5 Ml Inj) 5 mg IV Q6H [facility] Last Admin: 03/21/25 09:10 Dose: 5 mg Documented By: Admin: 03/21/25 02:20 Dose: 5 mg Documented By: Admin: 03/20/25 20:38 Dose: 5 mg Documented By: Admin: 03/20/25 15:46 Dose: Not Given Documented By: Admin: 03/20/25 08:34 Dose: 5 mg Documented By: Admin: 03/20/25 02:09 Dose: Not Given Documented By: Admin: 03/19/25 22:32 Dose: Not Given Documented By: MALACHI Metoprolol Tartrate (Metoprolol Ir 25 Mg Tablet) 25 mg PO TID [facility] Last Admin: 03/21/25 16:00 Dose: 25 mg Documented By: PRIYA Morphine Sulfate (Morphine 2 Mg/Ml Inj) 2 mg IV Q4HR PRN PRN Reason: Pain, Moderate (4-6) Naloxone HCl (Naloxone 0.4 Mg/Ml Vial) 0.2 mg IV Q2MIN PRN PRN Reason: Opiate Reversal Ondansetron HCl (Ondansetron 4 Mg/2 Ml Inj) 4 mg IV NOW ONE Stop: 03/18/25 12:43 Last Admin: 03/18/25 18:28 Dose: Not Given Documented By: BENJAMIN Ondansetron HCl (Ondansetron 4 Mg/2 Ml Inj) 4 mg IV Q8HR PRN PRN Reason: Nausea And Vomiting Ondansetron HCl (Ondansetron 4 Mg/2 Ml Inj) 4 mg IV Q4HR PRN PRN Reason: Nausea And Vomiting Oxycodone HCl (Oxycodone Ir 5 Mg Tablet) 5 mg PO PACUNOW PRN PRN Reason: Mild or moderate pain Pantoprazole Sodium (Pantoprazole 40 Mg Vial) 40 mg IV DAILY [facility] Last Admin: 03/21/25 08:53 Dose: 40 mg Documented By: PRIYA Pantoprazole Sodium (Pantoprazole Dr 40 Mg Tablet) 40 mg PO 0700 [facility] Last Admin: 03/23/25 06:06 Dose: 40 mg Documented By: Admin: 03/22/25 06:41 Dose: 40 mg Documented By: AT Potassium Chloride (Potassium Chloride 10 Meq Tab) 10 meq PO DAILY [facility] Potassium Chloride (Potassium Chloride 20 Meq/15 Ml Udc) 40 meq PO Q6H [facility] Stop: 03/22/25 13:01 Last Admin: 03/22/25 15:28 Dose: 40 meq Documented By: Admin: 03/22/25 06:55 Dose: 40 meq Documented By: AT Potassium Chloride (Potassium Chloride 20 Meq/15 Ml Udc) 40 meq PO Q6H [facility] Stop: 03/22/25 15:01 Last Admin: 03/22/25 17:06 Dose: Not Given Documented By: JAN Potassium Chloride (Potassium Chloride 20 Meq/15 Ml Udc) 40 meq PO Q6H [facility] Stop: 03/23/25 13:01 Last Admin: 03/23/25 15:07 Dose: Not Given Documented By: Admin: 03/23/25 09:09 Dose: 40 meq Documented By: SILVIA Potassium Chloride (Potassium Chloride 20 Meq Tab) 40 meq PO NOW ONE Stop: 03/23/25 14:46 Last Admin: 03/23/25 14:42 Dose: 40 meq Documented By: SILVIA Sodium Biphosphate/Sodium Phosphate (Fleets Enema) 1 each [place] Q4HRWA [facility] Last Admin: 03/19/25 13:47 Dose: Not Given Documented By: Admin: 03/19/25 09:03 Dose: 1 each Documented By: Admin: 03/18/25 21:00 Dose: 1 each Documented By: Admin: 03/18/25 18:27 Dose: 1 each Documented By: BENJAMIN Sodium Chloride (Sodium Chloride 0.9% Flush) 10 ml IV BID [facility] Last Admin: 03/23/25 09:12 Dose: 10 ml Documented By: Admin: 03/22/25 20:53 Dose: 10 ml Documented By: Admin: 03/22/25 08:57 Dose: 10 ml Documented By: JAN Sodium Chloride (Sodium Chloride 0.9% Flush) 10 ml IV PRN PRN PRN Reason: Flush Vital Signs Vital signs: Vital Signs - 8 hr 03/18/25 12:33 Temperature 97.2 F L Pulse Rate 88 Respiratory Rate 17 Blood Pressure 154/87 H Pulse Oximetry 98 Oxygen Delivery Method Room Air <Pankaj Burton MD - Last Filed: 03/25/25 07:10> Orders Ordered: Discontinued Medications Acetaminophen (Acetaminophen 325 Mg Tablet) 650 mg PO Q6HR PRN PRN Reason: Pain, Mild (1-3) Last Admin: 03/21/25 20:31 Dose: 650 mg Documented By: AT Allopurinol (Allopurinol 100 Mg Tablet) 300 mg PO DAILY [facility] Last Admin: 03/23/25 09:11 Dose: 300 mg Documented By: Admin: 03/22/25 08:56 Dose: 300 mg Documented By: CLL Amlodipine Besylate (Amlodipine 5 Mg Tablet) 10 mg PO DAILY [facility] Aspirin (Aspirin Ec 81 Mg Tablet) 81 mg PO DAILY [facility] Atorvastatin Calcium (Atorvastatin 20 Mg Tablet) 20 mg PO BEDTIME [facility] Last Admin: 03/22/25 20:53 Dose: 20 mg Documented By: Admin: 03/21/25 20:31 Dose: 20 mg Documented By: AT Benzocaine (Dermoplast Centre 20% 60 Ml) 60 spray TOP NOW ONE Stop: 03/18/25 16:18 Last Admin: 03/19/25 11:23 Dose: Not Given Documented By: FÁTIMA Benzocaine (Benzocaine/Menthol 1 Tommy Pkt) 1 each PO PRN PRN PRN Reason: Sore Throat Benzocaine/Butamben/Tetracaine HCl (Tetracaine/Benzocaine/Butamben (Cetacaine) Bottle) 1 spray TOP NOW ONE Stop: 03/18/25 16:24 Last Admin: 03/18/25 16:30 Dose: 1 spray Documented By: TITA Chlorthalidone (Chlorthalidone 25 Mg Tablet) 12.5 mg PO DAILY [facility] Last Admin: 03/23/25 09:09 Dose: 12.5 mg Documented By: Admin: 03/22/25 15:03 Dose: 12.5 mg Documented By: JAN Dexamethasone (Dexamethasone 10 Mg/Ml Vial) 8 mg IV NOW PRN PRN Reason: Nausea And Vomiting Fentanyl (Fentanyl 100 Mcg/2 Ml Inj) 0 mcg IV Q5MIN PRN PRN Reason: Pain, Severe (7-10) Heparin Sodium (Porcine) (Heparin 5,000 Unit/Ml Vial) 5,000 unit SUBCUT BID [facility] Last Admin: 03/23/25 09:09 Dose: 5,000 unit Documented By: Admin: 03/22/25 20:53 Dose: 5,000 unit Documented By: Admin: 03/22/25 08:57 Dose: 5,000 unit Documented By: Admin: 03/21/25 20:32 Dose: 5,000 unit Documented By: AT Hydromorphone HCl (Hydromorphone 1 Mg/Ml Syringe) 0 mg IV Q5MIN PRN PRN Reason: Pain, Moderate (4-6) Metronidazole (Flagyl) 500 mg in 100 mls @ 100 mls/hr IV NOW ONE Stop: 03/18/25 15:15 Last Infusion: 03/18/25 18:16 Dose: Infused Documented By: Admin: 03/18/25 15:45 Dose: 100 mls/hr Documented By: TITA Ceftriaxone Sodium 2,000 mg/ (Sodium Chloride) 100 mls @ 200 mls/hr IV NOW ONE Stop: 03/18/25 14:17 Last Infusion: 03/18/25 15:44 Dose: Infused Documented By: Admin: 03/18/25 15:31 Dose: 200 mls/hr Documented By: TITA Sodium Chloride (Normal Saline 0.9%) 1,000 mls @ 1,000 mls/hr IV BOLUS ONE Stop: 03/18/25 15:18 Last Infusion: 03/18/25 15:44 Dose: Infused Documented By: Admin: 03/18/25 14:45 Dose: 1,000 mls/hr Documented By: TITA Sodium Chloride (Normal Saline 0.9%) 1,000 mls @ 100 mls/hr IV CONT [facility] Last Infusion: 03/19/25 13:46 Dose: Infused Documented By: Admin: 03/19/25 02:15 Dose: 100 mls/hr Documented By: Infusion: 03/19/25 02:10 Dose: Infused Documented By: Admin: 03/18/25 16:10 Dose: 100 mls/hr Documented By: TITA Piperacillin Sod/Tazobactam (Sod 3.375 gm/ Sodium Chloride) 100 mls @ 25 mls/hr IV Q8H [facility] Last Infusion: 03/19/25 11:22 Dose: Infused Documented By: Admin: 03/19/25 07:09 Dose: 25 mls/hr Documented By: MALACHI POTASSIUM CHLORIDE IN WATER (Potassium Cl 10 Meq/100 Ml Kari) 10 meq in 100 mls @ 100 mls/hr IV Q1H [facility] Stop: 03/19/25 13:14 Last Admin: 03/19/25 13:38 Dose: Not Given Documented By: Admin: 03/19/25 13:38 Dose: Not Given Documented By: Admin: 03/19/25 13:38 Dose: Not Given Documented By: Admin: 03/19/25 13:37 Dose: Not Given Documented By: FÁTIMA Lactated Ringer's (Lactated Ringers) 1,000 mls @ 84 mls/hr IV CONT MANUEL Last Infusion: 03/19/25 13:46 Dose: Infused Documented By: Admin: 03/19/25 12:56 Dose: 84 mls/hr Documented By: TEENA POTASSIUM CHLORIDE IN WATER (Potassium Cl 10 Meq/100 Ml Kari) 10 meq in 100 mls @ 100 mls/hr IV Q1H MANUEL Stop: 03/19/25 17:59 Last Infusion: 03/19/25 15:06 Dose: Infused Documented By: Admin: 03/19/25 13:39 Dose: 100 mls/hr Documented By: FÁTIMA POTASSIUM CHLORIDE IN WATER (Potassium Cl 10 Meq/100 Ml Kari) 10 meq in 100 mls @ 100 mls/hr IV Q1H MANUEL Stop: 03/19/25 17:14 Last Infusion: 03/19/25 18:56 Dose: Infused Documented By: Admin: 03/19/25 17:10 Dose: 100 mls/hr Documented By: Infusion: 03/19/25 17:07 Dose: Infused Documented By: Admin: 03/19/25 16:07 Dose: 100 mls/hr Documented By: Infusion: 03/19/25 16:02 Dose: Infused Documented By: Admin: 03/19/25 15:02 Dose: 100 mls/hr Documented By: FÁTIMA Sodium Chloride (Normal Saline 0.9%) 1,000 mls @ 100 mls/hr IV CONT MANUEL Last Infusion: 03/23/25 09:49 Dose: Infused Documented By: Admin: 03/23/25 09:12 Dose: 100 mls/hr Documented By: Infusion: 03/23/25 09:12 Dose: Infused Documented By: Admin: 03/22/25 23:26 Dose: 100 mls/hr Documented By: Infusion: 03/22/25 23:00 Dose: Infused Documented By: Admin: 03/22/25 13:00 Dose: 100 mls/hr Documented By: Infusion: 03/22/25 12:57 Dose: Infused Documented By: Admin: 03/22/25 02:57 Dose: 100 mls/hr Documented By: Infusion: 03/21/25 22:43 Dose: Infused Documented By: Admin: 03/21/25 12:43 Dose: 100 mls/hr Documented By: Infusion: 03/21/25 03:21 Dose: Infused Documented By: Admin: 03/20/25 17:21 Dose: 100 mls/hr Documented By: Infusion: 03/20/25 10:25 Dose: Infused Documented By: Admin: 03/20/25 00:25 Dose: 100 mls/hr Documented By: Infusion: 03/20/25 00:23 Dose: Infused Documented By: Admin: 03/19/25 14:23 Dose: 100 mls/hr Documented By: PRIYA Piperacillin Sod/Tazobactam (Sod 3.375 gm/ Sodium Chloride) 100 mls @ 25 mls/hr IV Q8H MANUEL Last Infusion: 03/23/25 10:06 Dose: Infused Documented By: Admin: 03/23/25 06:06 Dose: 25 mls/hr Documented By: Infusion: 03/23/25 03:12 Dose: Infused Documented By: Admin: 03/22/25 23:10 Dose: 25 mls/hr Documented By: Infusion: 03/22/25 19:15 Dose: Infused Documented By: Admin: 03/22/25 14:57 Dose: 25 mls/hr Documented By: Infusion: 03/22/25 11:54 Dose: Infused Documented By: Admin: 03/22/25 06:41 Dose: 25 mls/hr Documented By: Infusion: 03/22/25 02:53 Dose: Infused Documented By: Admin: 03/21/25 22:52 Dose: 25 mls/hr Documented By: Infusion: 03/21/25 20:32 Dose: Infused Documented By: Admin: 03/21/25 16:00 Dose: 25 mls/hr Documented By: Infusion: 03/21/25 12:21 Dose: Infused Documented By: Admin: 03/21/25 08:51 Dose: 25 mls/hr Documented By: Infusion: 03/21/25 04:54 Dose: Infused Documented By: Admin: 03/21/25 00:54 Dose: 25 mls/hr Documented By: Infusion: 03/20/25 21:20 Dose: Infused Documented By: Admin: 03/20/25 17:20 Dose: 25 mls/hr Documented By: Infusion: 03/20/25 09:20 Dose: Infused Documented By: Admin: 03/20/25 06:57 Dose: 25 mls/hr Documented By: Infusion: 03/20/25 02:36 Dose: Infused Documented By: Admin: 03/19/25 22:36 Dose: 25 mls/hr Documented By: Infusion: 03/19/25 19:24 Dose: Infused Documented By: Admin: 03/19/25 15:11 Dose: 25 mls/hr Documented By: ZH Piperacillin Sod/Tazobactam (Sod 3.375 gm/ Sodium Chloride) 100 mls @ 25 mls/hr IV Q8H MANUEL Lactated Ringer's (Lactated Ringers) 1,000 mls @ 42 mls/hr IV CONT MANUEL Last Infusion: 03/21/25 14:22 Dose: Infused Documented By: Admin: 03/20/25 11:35 Dose: 42 mls/hr Documented By: Infusion: 03/20/25 11:35 Dose: Infused Documented By: Admin: 03/20/25 09:20 Dose: 42 mls/hr Documented By: BON POTASSIUM CHLORIDE IN WATER (Potassium Cl 10 Meq/100 Ml Kari) 10 meq in 100 mls @ 100 mls/hr IV Q1H MANUEL Stop: 03/20/25 14:44 Last Admin: 03/20/25 17:39 Dose: Not Given Documented By: Admin: 03/20/25 16:50 Dose: Not Given Documented By: Admin: 03/20/25 16:50 Dose: Not Given Documented By: Admin: 03/20/25 16:49 Dose: Not Given Documented By: PRIYA POTASSIUM CHLORIDE IN WATER (Potassium Cl 10 Meq/100 Ml Kari) 10 meq in 100 mls @ 100 mls/hr IV Q1H MANUEL Stop: 03/20/25 19:59 Last Admin: 03/20/25 17:48 Dose: Not Given Documented By: FÁTIMA POTASSIUM CHLORIDE IN WATER (Potassium Cl 10 Meq/100 Ml Kari) 10 meq in 100 mls @ 100 mls/hr IV Q1H MANUEL Stop: 03/20/25 21:59 Last Admin: 03/21/25 08:31 Dose: Not Given Documented By: Infusion: 03/20/25 22:35 Dose: Infused Documented By: Admin: 03/20/25 21:35 Dose: 100 mls/hr Documented By: Infusion: 03/20/25 20:35 Dose: Infused Documented By: Admin: 03/20/25 19:35 Dose: 100 mls/hr Documented By: Infusion: 03/20/25 19:26 Dose: Infused Documented By: Admin: 03/20/25 18:26 Dose: 100 mls/hr Documented By: FÁTIMA POTASSIUM CHLORIDE IN WATER (Potassium Cl 10 Meq/100 Ml Kari) 10 meq in 100 mls @ 100 mls/hr IV Q1H MANUEL Stop: 03/21/25 01:59 Last Infusion: 03/21/25 02:04 Dose: Infused Documented By: Admin: 03/21/25 01:04 Dose: 100 mls/hr Documented By: MALACHI Lidocaine HCl (Lidocaine Viscous 2% 15 Ml Solution) 15 ml PO NOW ONE Stop: 03/18/25 14:46 Last Admin: 03/18/25 14:49 Dose: 15 ml Documented By: TITA Lorazepam (Lorazepam 2 Mg/Ml Inj) 1 mg IV NOW ONE Stop: 03/18/25 15:34 Last Admin: 03/18/25 15:40 Dose: 1 mg Documented By: TITA Lorazepam (Lorazepam 2 Mg/Ml Inj) 1 mg IV NOW ONE Stop: 03/18/25 15:59 Last Admin: 03/18/25 16:03 Dose: 1 mg Documented By: TITA Lorazepam (Lorazepam 2 Mg/Ml Inj) 0.5 mg IV Q6HR PRN PRN Reason: Anxiety Metoprolol Succinate (Metoprolol Er 50 Mg Tablet) 50 mg PO DAILY [facility] Last Admin: 03/23/25 09:12 Dose: 50 mg Documented By: Admin: 03/22/25 15:03 Dose: 50 mg Documented By: JAN Metoprolol Tartrate (Metoprolol Tartrate 5 Mg/5 Ml Inj) 5 mg IV NOW ONE Stop: 03/19/25 13:54 Last Admin: 03/19/25 14:17 Dose: Not Given Documented By: FÁTIMA Metoprolol Tartrate (Metoprolol Tartrate 5 Mg/5 Ml Inj) 5 mg IV NOW ONE Stop: 03/19/25 14:16 Last Admin: 03/19/25 14:18 Dose: 5 mg Documented By: PRIYA Metoprolol Tartrate (Metoprolol Tartrate 5 Mg/5 Ml Inj) 5 mg IV Q6H [facility] Last Admin: 03/19/25 16:38 Dose: Not Given Documented By: FÁTIMA Metoprolol Tartrate (Metoprolol Tartrate 5 Mg/5 Ml Inj) 5 mg IV Q6H [facility] Last Admin: 03/21/25 09:10 Dose: 5 mg Documented By: Admin: 03/21/25 02:20 Dose: 5 mg Documented By: Admin: 03/20/25 20:38 Dose: 5 mg Documented By: Admin: 03/20/25 15:46 Dose: Not Given Documented By: Admin: 03/20/25 08:34 Dose: 5 mg Documented By: Admin: 03/20/25 02:09 Dose: Not Given Documented By: Admin: 03/19/25 22:32 Dose: Not Given Documented By: MALACHI Metoprolol Tartrate (Metoprolol Ir 25 Mg Tablet) 25 mg PO TID [facility] Last Admin: 03/21/25 16:00 Dose: 25 mg Documented By: NR Morphine Sulfate (Morphine 2 Mg/Ml Inj) 2 mg IV Q4HR PRN PRN Reason: Pain, Moderate (4-6) Naloxone HCl (Naloxone 0.4 Mg/Ml Vial) 0.2 mg IV Q2MIN PRN PRN Reason: Opiate Reversal Ondansetron HCl (Ondansetron 4 Mg/2 Ml Inj) 4 mg IV NOW ONE Stop: 03/18/25 12:43 Last Admin: 03/18/25 18:28 Dose: Not Given Documented By: BENJAMIN Ondansetron HCl (Ondansetron 4 Mg/2 Ml Inj) 4 mg IV Q8HR PRN PRN Reason: Nausea And Vomiting Ondansetron HCl (Ondansetron 4 Mg/2 Ml Inj) 4 mg IV Q4HR PRN PRN Reason: Nausea And Vomiting Oxycodone HCl (Oxycodone Ir 5 Mg Tablet) 5 mg PO PACUNOW PRN PRN Reason: Mild or moderate pain Pantoprazole Sodium (Pantoprazole 40 Mg Vial) 40 mg IV DAILY [facility] Last Admin: 03/21/25 08:53 Dose: 40 mg Documented By: PRIYA Pantoprazole Sodium (Pantoprazole Dr 40 Mg Tablet) 40 mg PO 0700 [facility] Last Admin: 03/23/25 06:06 Dose: 40 mg Documented By: Admin: 03/22/25 06:41 Dose: 40 mg Documented By: AT Potassium Chloride (Potassium Chloride 10 Meq Tab) 10 meq PO DAILY [facility] Potassium Chloride (Potassium Chloride 20 Meq/15 Ml Udc) 40 meq PO Q6H [facility] Stop: 03/22/25 13:01 Last Admin: 03/22/25 15:28 Dose: 40 meq Documented By: Admin: 03/22/25 06:55 Dose: 40 meq Documented By: AT Potassium Chloride (Potassium Chloride 20 Meq/15 Ml Udc) 40 meq PO Q6H [facility] Stop: 03/22/25 15:01 Last Admin: 03/22/25 17:06 Dose: Not Given Documented By: JAN Potassium Chloride (Potassium Chloride 20 Meq/15 Ml Udc) 40 meq PO Q6H [facility] Stop: 03/23/25 13:01 Last Admin: 03/23/25 15:07 Dose: Not Given Documented By: Admin: 03/23/25 09:09 Dose: 40 meq Documented By: SILVIA Potassium Chloride (Potassium Chloride 20 Meq Tab) 40 meq PO NOW ONE Stop: 03/23/25 14:46 Last Admin: 03/23/25 14:42 Dose: 40 meq Documented By: SILVIA Sodium Biphosphate/Sodium Phosphate (Fleets Enema) 1 each IL Q4HRWA [facility] Last Admin: 03/19/25 13:47 Dose: Not Given Documented By: Admin: 03/19/25 09:03 Dose: 1 each Documented By: Admin: 03/18/25 21:00 Dose: 1 each Documented By: Admin: 03/18/25 18:27 Dose: 1 each Documented By: BENJAMIN Sodium Chloride (Sodium Chloride 0.9% Flush) 10 ml IV BID [facility] Last Admin: 03/23/25 09:12 Dose: 10 ml Documented By: Admin: 03/22/25 20:53 Dose: 10 ml Documented By: Admin: 03/22/25 08:57 Dose: 10 ml Documented By: JAN Sodium Chloride (Sodium Chloride 0.9% Flush) 10 ml IV PRN PRN PRN Reason: Flush Vital Signs Vital signs: Vital Signs - 8 hr 03/18/25 12:33 Temperature 97.2 F L Pulse Rate 88 Respiratory Rate 17 Blood Pressure 154/87 H Pulse Oximetry 98 Oxygen Delivery Method Room Air MDM - Abdominal Pain <Gentry Sampson PA-C - Last Filed: 03/18/25 16:20> Lab Data 03/23/25 04:16 03/23/25 04:16 Labs: Lab Results 03/18/25 Range/Units 12:55 WBC 15.3 H (4.5-11.0) X10^3/uL RBC 4.66 (4.5-5.9) X10^6/uL Hgb 14.0 (13.5-17.5) g/dL Hct 41.3 (41-53) % MCV 88.7 (80-100) fL MCH 30.1 (26-34) PG MCHC 33.9 (30-36) % RDW 14.1 (11.6-14.8) % Plt Count 487 H (150-400) X10^3/uL Neut % (Auto) 85.5 H (50-75) % Lymph % (Auto) 6.5 L (25-40) % [place] % (Auto) 7.2 (3-14) % Eos % (Auto) 0.1 L (2-4) % Baso % (Auto) 0.7 (0-2) % Neut # (Auto) 28697 H (8973-3303) /uL Lymph # (Auto) 1000 L (3872-2558) /uL [place] # (Auto) 1100 H (0-900) /uL Eos # (Auto) 0 (0-450) /uL Baso # (Auto) 100 (0-100) /uL Sodium 136 L (137-145) mmol/L Potassium 4.0 (3.4-5.1) mmol/L Chloride 94 L (98-107) mmol/L Carbon Dioxide 23 (22-32) mmol/L BUN 25 H (9-20) mg/dL Creatinine 0.84 (0.66-1.25) mg/dL Estimated GFR > 60 (>60) mL/min BUN/Creatinine Ratio 29.8 H (6-22) Glucose 152 H (70-99) mg/dL Lactate 1.7 (0.7-2.1) mmol/L Calcium 9.6 (8.4-10.2) mg/dL Total Bilirubin 0.7 (0.2-1.3) mg/dL AST 35 (17-59) IU/L ALT 14 (<50) IU/L Alkaline Phosphatase 106 (38-126) U/L Total Protein 8.7 H (6.3-8.2) g/dL Albumin 4.6 (3.5-5.0) g/dL Globulin 4.1 (1.7-4.1) g/dL Albumin/Globulin Ratio 1.1 (1.0-2.8) Lipase 89 (23-300) U/L TSH 1.78 (0.47-4.68) uIU/mL MDM Narrative Medical decision making narrative: 74-year-old male with past medical history hypertension, hyperlipidemia, gout, sleep apnea presents to the ED with 1 week of no bowel movements. Concern for bowel obstruction versus constipation versus gastroenteritis versus other intra- abdominal pathology versus other. Will obtain labs, UA, CT abdomen pelvis. Will give Zofran for nausea. Labs significant for a white count of 15.3. All other labs unremarkable. CT is concerning for high-grade distal small-bowel obstruction involving small bowel loops in left lower quadrant just lateral to the midline. Moderate to large size left inguinal hernia containing a segment of sigmoid colon loop with wall thickening and caliber change within the herniation sac concerning for incarceration. Fecal impaction and distal sigmoid colon and rectum. Small amount of ascites fluid. No gross free air. No abscess collection. Will consult surgery. Dr. Perez from general surgery was consulted, she recommends admitting to Medicine for decompression, hernia reduction. Dr. Perez has talked to hospitalist Dr. Flores, who graciously admits the patient. Patient was given 2 g of Ativan to a nasogastric tube placement. X-ray and EKG ordered per Dr. Perez's request. Plan and disposition discussed with patient and patient's . They are agreeable to the plan. Medical records reviewed: Yes <Pankaj Burton MD - Last Filed: 03/25/25 07:10> Lab Data Labs: Lab Results 03/18/25 Range/Units 12:55 WBC 15.3 H (4.5-11.0) X10^3/uL RBC 4.66 (4.5-5.9) X10^6/uL Hgb 14.0 (13.5-17.5) g/dL Hct 41.3 (41-53) % MCV 88.7 (80-100) fL MCH 30.1 (26-34) PG MCHC 33.9 (30-36) % RDW 14.1 (11.6-14.8) % Plt Count 487 H (150-400) X10^3/uL Neut % (Auto) 85.5 H (50-75) % Lymph % (Auto) 6.5 L (25-40) % [place] % (Auto) 7.2 (3-14) % Eos % (Auto) 0.1 L (2-4) % Baso % (Auto) 0.7 (0-2) % Neut # (Auto) 91047 H (2072-0295) /uL Lymph # (Auto) 1000 L (3491-4107) /uL [place] # (Auto) 1100 H (0-900) /uL Eos # (Auto) 0 (0-450) /uL Baso # (Auto) 100 (0-100) /uL Sodium 136 L (137-145) mmol/L Potassium 4.0 (3.4-5.1) mmol/L Chloride 94 L (98-107) mmol/L Carbon Dioxide 23 (22-32) mmol/L BUN 25 H (9-20) mg/dL Creatinine 0.84 (0.66-1.25) mg/dL Estimated GFR > 60 (>60) mL/min BUN/Creatinine Ratio 29.8 H (6-22) Glucose 152 H (70-99) mg/dL Lactate 1.7 (0.7-2.1) mmol/L Calcium 9.6 (8.4-10.2) mg/dL Total Bilirubin 0.7 (0.2-1.3) mg/dL AST 35 (17-59) IU/L ALT 14 (<50) IU/L Alkaline Phosphatase 106 (38-126) U/L Total Protein 8.7 H (6.3-8.2) g/dL Albumin 4.6 (3.5-5.0) g/dL Globulin 4.1 (1.7-4.1) g/dL Albumin/Globulin Ratio 1.1 (1.0-2.8) Lipase 89 (23-300) U/L TSH 1.78 (0.47-4.68) uIU/mL Discharge Plan Departure Patient Disposition: Admitted As Inpatient Clinical Impression: Small bowel obstruction Inguinal hernia Qualifiers: Obstruction and gangrene presence: without obstruction or gangrene Laterality: unilateral Recurrence: not specified as recurrent Qualified Code(s): K40.90 - Unilateral inguinal hernia, without obstruction or gangrene, not specified as recurrent Admit Date/Time: 03/18/25 15:37 Admit Provider: Delfin Flores ED Sign-out <Pankaj Burton MD - Last Filed: 03/25/25 07:10> Cosign ED Attending Cosignature Attestation: I was immediately available in the department for consultation. ?This documentation has been reviewed and I agree with assessment and plan. Supervised by Pankaj Burton MD
[2025-03-18] MEDS: SODIUM CHLORIDE 0.9% 1,000 ML 1000 ML IV (14:45)
[2025-03-18] MEDS: LIDOCAINE VISCOUS 2% 15 ML SOLUTION PO (14:49)
[2025-03-18] MEDS: cefTRIAXone 2,000 MG in SODIUM CHLORIDE 0.9% 100 ML 200 MG IV (15:31)
--- NOTE | 2025-03-18 15:33 | DI.RAD.S_ITS ---
PROCEDURE: XR CHEST 2V INDICATIONS: sbo TECHNIQUE: 2 views of the chest were acquired. COMPARISON: CT abdomen pelvis 03/18/2025. FINDINGS: Surgical changes and devices: None. Lungs and pleura: Low lung volumes.. No pleural effusions or pneumothorax. Mediastinum: Mediastinal contours are normal. Heart size is enlarged. Bones and chest wall: No suspicious bony abnormalities. Soft tissues appear unremarkable. Dilated loops of bowel seen in the upper abdomen IMPRESSION: Cardiomegaly. Low lung volumes without focal dense airspace consolidation. Gas distended loops of bowel in the upper abdomen. Please see prior same day CT abdomen pelvis Approved by: Brianda Haynes M.D.,Ph.D. on 03/18/2025 at 17:18
[2025-03-18] MEDS: metroNIDAZOLE 500 MG/100 ML PIGGYBACK 100 MG IV (15:45)
--- NOTE | 2025-03-18 16:00 | PM.CN.IH.1 ---
History of Present Illness Consult details Date Patient Seen: 03/18/25 Time Patient Seen: 16:00 Chief complaint: Bowel Blockage for 5 days Narrative: Called to evaluate this very pleasant 74-year-old gentleman who presented to the emergency room with a 5 day history of inability to pass flatus or have a bowel movement. Patient reports over the last couple of days he has also had some nausea and vomiting. Upon evaluation in the emergency room he was noted to have a substantial chronic, left inguinal hernia, with a very distended colon extending into the small bowel. There is copious stool and air within the colon. The patient reports the hernia has been ?just as big, but not as tight?. The patient has a history of intermittent constipation for which he takes copious laxatives. He does not take anything otherwise in the form of daily laxatives fiber or stool softeners. On presentation he has a distended abdomen. He complains of pain only in association with the distention, but notes when pressing upon his abdomen ?it does not really hurt. He frequently belches. He reports no melena or hematochezia. He admits to a right inguinal hernia repair at 6 years of age, but has had no other abdominal surgeries. His past medical history is significant for COPD, obstructive sleep apnea, hypertension, and gout. 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 His is at his bedside. Meds Home Medications and Allergies Home Medications ?Medication ?Instructions ?Recorded ?Confirmed ?Type multivitamin (Multiple Vitamins 1 tab PO QDAY #0 tabs 11/04/15 11/22/24 History tablet) [VITAMIN D3] 1,000 iu PO SEE INSTRUCTIONS ##0 06/07/17 11/22/24 History ascorbate calcium (vitamin C) 500 500 mg PO DAILY 09/19/17 11/22/24 History mg tablet Calcium See Rx Instructions .Route .COMPLEX 12/11/18 11/22/24 History aspirin 81 mg tablet,delayed 81 mg PO DAILY 12/11/18 11/22/24 History release (Adult Low Dose Aspirin) vitamin B complex 1 tab PO .every other day 12/11/18 11/22/24 History allopurinol 300 mg tablet 300 mg PO DAILY #90 tabs 11/22/24 11/22/24 Rx amlodipine 10 mg tablet 10 mg PO Q DAY #90 tabs 11/22/24 11/22/24 Rx chlorthalidone 25 mg tablet 12.5 mg (1/2 x 25 mg) PO DAILY 11/22/24 11/22/24 Rx blood pressure #45 tabs metoprolol succinate 50 mg 50 mg PO QDAY #90 tabs 11/22/24 11/22/24 Rx tablet,extended release 24 hr (Toprol XL) potassium chloride 10 mEq 10 meq PO DAILY #90 tabs 11/22/24 11/22/24 Rx tablet,extended release rosuvastatin 10 mg tablet (Crestor) 10 mg PO DAILY #90 tabs 11/22/24 11/22/24 Rx Allergies Allergy/AdvReac Type Severity Reaction Status Date / Time ANNY Inhibitors (ANNY Allergy Severe Angioedema Verified 03/18/25 12:35 INHIBITORS) of head and neck venom-honey bee (BEE VENOM Allergy Severe SWELLING Verified 03/18/25 12:35 (HONEY BEE)) AND REDNESS Review of Systems Review of Systems ROS: Yes All systems reviewed with the patient and are negative except as otherwise documented Exam Vital Signs (past 8 hours): - 03/18/25 12:33 Temperature 97.2 F L Pulse Rate 88 Respiratory Rate 17 Blood Pressure 154/87 H Pulse Oximetry 98 Oxygen Delivery Method Room Air Oxygen Delivery Method Room Air Narrative Exam Narrative: Afebrile; vital signs stable Alert and oriented x4 Atraumatic, normocephalic Extraocular motions intact; no scleral icterus Regular rate and rhythm with no audible murmur Respirations clear to auscultation bilaterally; no wheezes, rales, or rhonchi; normal chest wall excursion Abdomen very distended and taut, but no peritoneal signs; good bowel sounds; abdomen nontender to palpation in all quadrants; taut, notable, left inguinal hernia with incarcerated bowel Rectal deferred Moves all extremities x4 Objective Imaging CT scan - abdomen: Radiologist's impression: PROCEDURE: CT ABDOMEN PELVIS W CON INDICATIONS: ?bowel blockage TECHNIQUE: After the administration of intravenous contrast, axial sections acquired from the lung bases to the pubic symphysis. Coronal and sagittal reformats were performed. For radiation dose reduction, the following was used: automated exposure control, adjustment of mA and/or kV according to patient size. COMPARISON: None. FINDINGS: Image quality: Diagnostic. Lower Chest: Bibasilar scattered scarring/atelectasis is seen. Heart size is mildly enlarged with pacemaker leads seen. No significant pericardial effusion. Mild distal esophageal wall thickening with small hiatal hernia. ABDOMEN: Liver: No solid mass. Gallbladder: no radiopaque gallstones or wall thickening. Biliary ducts: No biliary dilation. Pancreas: No ductal dilation. Spleen: Size is within normal limits. Adrenal Glands: No adrenal nodules. Kidneys and Ureters: No hydronephrosis. No solid mass. No complex renal cystic lesion which requires follow up. Stomach and Bowel: Fluid distension of stomach and small bowel loops is seen with a few air-fluid levels and suggestion of caliber change involving distal small bowel loops in left lower quadrant near midline best seen on series 2, image 107 concerning for focal high-grade small bowel obstruction. Air distended colon loops are noted extending to left inguinal herniation sac with wall thickening and narrowing of the lumen within the herniation sac and decompressed more distal portion of the sigmoid colon. Significant fecal distension of the distal sigmoid colon and rectum is seen. No abscess collection. Peritoneum: Small amount of peritoneal free fluid. No free air. Ventral Wall: No significant ventral hernia. Abdominal Nodes: No retroperitoneal or mesenteric adenopathy by size criteria. Vessels: Aorta and inferior vena cava are normal in size. PELVIS: Pelvic Organs: Unremarkable. Bladder: No bladder wall thickening, accounting for underdistention. Pelvic Nodes: No enlarged lymph nodes. Miscellaneous: Moderate size left inguinal hernia is seen containing a segment of sigmoid colon loop with small amount of ascites fluid and mesenteric fat stranding within the herniation sac. Bones: No aggressive osseous abnormality. Degenerative disc disease throughout lower thoracic and lumbar spine is seen. IMPRESSION: 1. Finding is concerning for high-grade distal small-bowel obstruction involving small bowel loops in left lower quadrant just lateral to the midline. 2. Moderate to large size left inguinal hernia containing a segment of sigmoid colon loop with wall thickening and caliber change within the herniation sac concerning for incarceration suggest clinical correlation. 3. Fecal impaction in distal sigmoid colon and rectum. Small amount of ascites fluid. No gross free air. No abscess collection. Dictated by: Chivo Forman M.D. on 03/18/2025 at 13:39 Approved by: Chivo Forman M.D. on 03/18/2025 at 13:47 Labs 03/18/25 12:55 03/18/25 12:55 Labs: Laboratory Results - last 24 hr 03/18/25 12:55 WBC 15.3 H RBC 4.66 Hgb 14.0 Hct 41.3 MCV 88.7 MCH 30.1 MCHC 33.9 RDW 14.1 Plt Count 487 H Neut % (Auto) 85.5 H Lymph % (Auto) 6.5 L [place] % (Auto) 7.2 Eos % (Auto) 0.1 L Baso % (Auto) 0.7 Neut # (Auto) 50285 H Lymph # (Auto) 1000 L [place] # (Auto) 1100 H Eos # (Auto) 0 Baso # (Auto) 100 Sodium 136 L Potassium 4.0 Chloride 94 L Carbon Dioxide 23 BUN 25 H Creatinine 0.84 Estimated GFR > 60 BUN/Creatinine Ratio 29.8 H Glucose 152 H Lactate 1.7 Calcium 9.6 Total Bilirubin 0.7 AST 35 ALT 14 Alkaline Phosphatase 106 Total Protein 8.7 H Albumin 4.6 Globulin 4.1 Albumin/Globulin Ratio 1.1 Lipase 89 PFSH Medical History Mitral valve regurgitation Acne (~1964) Fever (~1972) Allergies (~1980) Mumps (~1953) Measles (~1952) Chicken pox (~1952) Peptic ulcer disease (~1969) Skin cancer (~2006) Basal cell carcinoma (2017) Melanoma (Unknown) Hypertension (Unknown) Hyperlipemia (Unknown) Idiopathic gout (02/11/15) Mixed hyperlipidemia (02/11/15) Essential hypertension (02/11/15) Surgical History Hx of shoulder surgery (~1971) Family History Father Peritonitis Grandfather No problems noted. Grandmother No problems noted. Mother Dementia Grandfather History of heart disease Grandmother No problems noted. Tobacco & Substance Use Smoking Status: Former smoker Tobacco: How many years used: 30 second hand exposure: Yes (sometimes, but I try to avoid it.) alcohol intake: current (a glass of wine 2 to 3 times a week.) substance use type: does not use Assessment & Plan Assessment & Plan narrative: 74-year-old gentleman with a high-grade small bowel obstruction secondary in part to a functional large bowel obstruction -have spoken at length with Dr. Flores; we will plan for admission and placement of an NG tube. Currently it would be extremely difficult to reduce the hernia given the large volume of stool distally which in turn is causing filling of the bowel within the hernia defect and a small bowel obstruction. Therefore we will place a nasogastric tube to decompress the bowel proximally and supply enemas to decompress the bowel distally. This in the hope that it will be easier to reduce the hernia. However, should the patient develop significant abdominal discomfort or peritoneal signs, we will proceed immediately to the OR. He will be made NPO. Otherwise we will plan for surgical intervention tomorrow. -would continue antibiotics -chest x-ray and EKG in the emergency room in preparation for surgery -would plan again for NG tube decompression, but also enemas to decompress the colon from below -we will follow closely Time-Based Coding :: [TOTAL MINUTES] spent with patient and on the chart (including review of chart, obtaining history, exam, reviewing outside data, placing orders, documenting exam and treatment plan, and counseling patient) on [DATE]. PROFEE Charge Codes Inpatient or Observation consultation: [id number]
[2025-03-18] MEDS: SODIUM CHLORIDE 0.9% 1,000 ML 100 ML IV (16:10)
[2025-03-18] MEDS: TETRACAINE/BENZOCAINE/BUTAMBEN (CETACAINE) BOTTLE 1 SPRAY TOP (16:30)
--- NOTE | 2025-03-18 17:16 | DI.RAD.S_ITS ---
PROCEDURE: XR CHEST 1V INDICATIONS: confirm ng placement TECHNIQUE: One view of the chest was acquired. COMPARISON: [facility], CT, CT ABDOMEN PELVIS W CON, 03/18/2025, 13:20. [facility], CR, XR CHEST 2V, 03/18/2025, 16:04. FINDINGS: Patient is rotated the right. Surgical changes and devices: Enteric tube coursing into the stomach. Lungs and pleura: Lower lung volumes. Mild streaky opacity at the left lung base. No pleural effusions or pneumothorax. Mediastinum: Mediastinal contours appear normal. Heart size appears prominent but could be projectional. Bones and chest wall: No suspicious bony lesions. Prominent bowel gas. IMPRESSION: Enteric tube coursing into the stomach. Dictated by: Robi Hopkins M.D. on 03/18/2025 at 18:13 Approved by: Robi Hopkins M.D. on 03/18/2025 at 18:16
--- NOTE | 2025-03-18 17:24 | PM.HP.1 ---
History of Present Illness History of Present Illness Date Patient Seen: 03/18/25 Time Patient Seen: 17:24 Chief complaint: Bowel Blockage for 5 days Narrative: This is a 74-year-old male with a history of gout, hypertension, malignant melanoma and hyperlipidemia who presents with acute bowel obstruction related to severe obstipation and a left inguinal hernia. He has been evaluated by General surgery with the conclusion that his severe constipation has entrapped portions of his sigmoid colon in the inguinal hernia causing significant distention. An attempt to clear the stool with enema and NG tube prior to attempts for relief of bowel obstruction and hernia surgery is the plan. The hernia has been present for about a year and the distention, nausea, vomiting for about 1 week. The white blood count is 15.3. Assessment and plan: Acute bowel obstruction, present on admission. Active. -incarcerated sigmoid bowel in left inguinal hernia secondary to severe constipation. -NG tube placement, fleets enemas to relieve abdominal distention and prepared for surgical treatment. -appreciate General surgery consult and assistance. Severe constipation -check TSH, begin routine fleets enema. Hypertension -holding chlorthalidone, potassium chloride, amlodipine and metoprolol. Gout -holding allopurinol SCD for DVT prevention. His is his backup decision maker. [facility] Medical History Mitral valve regurgitation Acne (~1965) Fever (~1972) Allergies (~1980) Mumps (~1953) Measles (~1952) Chicken pox (~1952) Peptic ulcer disease (~1970) Skin cancer (~2006) Basal cell carcinoma (2017) Melanoma (Unknown) Hypertension (Unknown) Hyperlipemia (Unknown) Idiopathic gout (02/11/15) Mixed hyperlipidemia (02/11/15) Essential hypertension (02/11/15) Surgical History Hx of shoulder surgery (~1971) Family History Father Peritonitis Grandfather No problems noted. Grandmother No problems noted. Mother Dementia Grandfather History of heart disease Grandmother No problems noted. Social History Smoking Status: Former smoker Tobacco: How many years used: 30 second hand exposure: Yes (sometimes, but I try to avoid it.) alcohol intake: current (a glass of wine 2 to 3 times a week.) substance use type: does not use Meds Home Medications and Allergies Home Medications ?Medication ?Instructions ?Recorded ?Confirmed ?Type multivitamin (Multiple Vitamins 1 tab PO QDAY #0 tabs 11/04/15 11/22/24 History tablet) [VITAMIN D3] 1,000 iu PO SEE INSTRUCTIONS ##0 06/07/17 11/22/24 History ascorbate calcium (vitamin C) 500 500 mg PO DAILY 09/19/17 11/22/24 History mg tablet Calcium See Rx Instructions .Route .COMPLEX 12/11/18 11/22/24 History aspirin 81 mg tablet,delayed 81 mg PO DAILY 12/11/18 11/22/24 History release (Adult Low Dose Aspirin) vitamin B complex 1 tab PO .every other day 12/11/18 11/22/24 History allopurinol 300 mg tablet 300 mg PO DAILY #90 tabs 11/22/24 11/22/24 Rx amlodipine 10 mg tablet 10 mg PO Q DAY #90 tabs 11/22/24 11/22/24 Rx chlorthalidone 25 mg tablet 12.5 mg (1/2 x 25 mg) PO DAILY 11/22/24 11/22/24 Rx blood pressure #45 tabs metoprolol succinate 50 mg 50 mg PO QDAY #90 tabs 11/22/24 11/22/24 Rx tablet,extended release 24 hr (Toprol XL) potassium chloride 10 mEq 10 meq PO DAILY #90 tabs 11/22/24 11/22/24 Rx tablet,extended release rosuvastatin 10 mg tablet (Crestor) 10 mg PO DAILY #90 tabs 11/22/24 11/22/24 Rx Allergies Allergy/AdvReac Type Severity Reaction Status Date / Time ANNY Inhibitors (ANNY Allergy Severe Angioedema Verified 03/18/25 12:35 INHIBITORS) of head and neck venom-honey bee (BEE VENOM Allergy Severe SWELLING Verified 03/18/25 12:35 (HONEY BEE)) AND REDNESS Review of Systems Review of Systems Narrative: Positive for abdominal distention, constipation, left inguinal hernia pain, nausea and vomiting. Negative for fevers, chills, sweats, chest pain, coughing, shortness breast, dysuria, rashes, joint swelling, seizures, new allergies. Exam Vital Signs (past 8 hours): - 03/18/25 12:33 Temperature 97.2 F L Pulse Rate 88 Respiratory Rate 17 Blood Pressure 154/87 H Pulse Oximetry 98 Oxygen Delivery Method Room Air Oxygen Delivery Method Room Air Narrative Exam Narrative: Alert and oriented x3. Moderate distress from NG tube placement and abdominal distention. Pupils are equally round and reactive to light and accommodation. Extraocular muscles are intact. Sclerae are pink and nonicteric. No lymph nodes are felt head, neck, supraclavicular area. There is no thyromegaly. JVD is less than 6 cm. No carotid bruits are heard. Throat looks normal. Heart is regular rate and rhythm with a 3/6 harsh systolic murmur. Lungs are clear to auscultation bilaterally. Abdomen is very tensely distended. There is a tense swollen left inguinal hernia moderate size. Extremities have no ankle edema. Skin has no rash or jaundice. Motor functions 4/5 throughout. Cranial nerves 2-12 test intact. There is no tremor. Reflexes are symmetric. Objective Labs 03/18/25 12:55 03/18/25 12:55 Labs: Laboratory Results - last 24 hr 03/18/25 12:55 WBC 15.3 H RBC 4.66 Hgb 14.0 Hct 41.3 MCV 88.7 MCH 30.1 MCHC 33.9 RDW 14.1 Plt Count 487 H Neut % (Auto) 85.5 H Lymph % (Auto) 6.5 L [place] % (Auto) 7.2 Eos % (Auto) 0.1 L Baso % (Auto) 0.7 Neut # (Auto) 55938 H Lymph # (Auto) 1000 L [place] # (Auto) 1100 H Eos # (Auto) 0 Baso # (Auto) 100 Sodium 136 L Potassium 4.0 Chloride 94 L Carbon Dioxide 23 BUN 25 H Creatinine 0.84 Estimated GFR > 60 BUN/Creatinine Ratio 29.8 H Glucose 152 H Lactate 1.7 Calcium 9.6 Total Bilirubin 0.7 AST 35 ALT 14 Alkaline Phosphatase 106 Total Protein 8.7 H Albumin 4.6 Globulin 4.1 Albumin/Globulin Ratio 1.1 Lipase 89 Assessment & Plan Time-Based Coding :: [TOTAL MINUTES] spent with patient and on the chart (including review of chart, obtaining history, exam, reviewing outside data, placing orders, documenting exam and treatment plan, and counseling patient) on [DATE].
[2025-03-18] MEDS: FLEETS ENEMA 1 EACH PR ×2 (18:27→21:00)
[2025-03-18 18:43] LABS: Thyroid Stimulating Hormone 1.78 uIU/mL (0.47-4.68)
[2025-03-19] MEDS: SODIUM CHLORIDE 0.9% 1,000 ML 100 ML IV ×2 (02:15→14:23)
--- NOTE | 2025-03-19 06:28 | DI.RAD.S_ITS ---
PROCEDURE: XR KUB INDICATIONS: assess for stool content of bowel TECHNIQUE: One view of the abdomen acquired. COMPARISON: [facility], CT, CT ABDOMEN PELVIS W CON, 03/18/2025, 13:20. FINDINGS: Surgical changes and devices: NG tube tip is in the region of GE junction and should be advanced by 10 cm. Bowel: Air distended bowel loops are noted throughout abdomen concerning for distal bowel obstruction versus ileus. No gross pneumoperitoneum. No significant fecal content is noted on the current study. Soft tissues: No suspicious abdominal calcifications. Visualized solid organ contours appear normal in size. Bones: No suspicious bony lesions. IMPRESSION: NG tube tip is in the region of GE junction and should be advanced by 10 cm. Bowel gas pattern is suggestive of distal bowel obstruction versus ileus. No gross pneumoperitoneum. No significant fecal content is seen on the current study. Dictated by: Chivo Forman M.D. on 03/19/2025 at 8:15 Approved by: Chivo Forman M.D. on 03/19/2025 at 8:16
[2025-03-19] MEDS: PIPERACILLIN/TAZO 3.375 GM in SODIUM CHLORIDE 0.9% 100 ML IV ×3 (07:09→22:36)
[2025-03-19 07:28] LABS: Add Manual Diff / Slide Review NO; Hematocrit 34.8 % (41-53); Hemoglobin 12.0 g/dL (13.5-17.5); Lymphocytes Absolute Auto 900 /uL (1100-4500); Mean Corpuscular HGB Conc 34.5 % (30-36); Mean Corpuscular Hemoglobin 30.5 PG (26-34); Mean Corpuscular Volume 88.2 fL (80-100); Platelet Count 406 X10^3/uL (150-400)
[2025-03-19 07:41] LABS: Alanine Aminotransferase 10 IU/L (<50); Albumin 3.5 g/dL (3.5-5.0); Albumin Globulin Ratio 1.1 (1.0-2.8); Alkaline Phosphatase 75 U/L (38-126); Blood Urea Nitrogen 21 mg/dL (9-20); Calcium 8.5 mg/dL (8.4-10.2); Carbon Dioxide 25 mmol/L (22-32); Chloride 101 mmol/L (98-107); Estimated Glomerular Filt Rate > 60 mL/min (>60); Globulin 3.3 g/dL (1.7-4.1); Glucose 119 mg/dL (70-99); HEMOLYSIS < 15 (0-50); Potassium 3.2 mmol/L (3.4-5.1); Sodium 138 mmol/L (137-145); Total Protein 6.8 g/dL (6.3-8.2)
[2025-03-19 07:56] VITALS: BP 135/62; PULSE 96; RESP 18; TEMP 36.8; O2SAT 95
[2025-03-19] MEDS: FLEETS ENEMA 1 EACH PR (09:03)
--- NOTE | 2025-03-19 09:39 | PM.PN.1 ---
Subjective Subjective Interval history: Narrative: This is a 74-year-old male with a history of gout, hypertension, malignant melanoma and hyperlipidemia who presents with acute bowel obstruction related to severe obstipation and a left inguinal hernia. He has been evaluated by General surgery with the conclusion that his severe constipation has entrapped portions of his sigmoid colon in the inguinal hernia causing significant distention. An attempt to clear the stool with enema and NG tube prior to attempts for relief of bowel obstruction and hernia surgery is the plan. The hernia has been present for about a year and the distention, nausea, vomiting for about 1 week. The white blood count is 15.3. D/W Dr. Perez(surgery): Examined imaging are improving. The plan is to continue NG tube decompression and evacuation of stool from colon. S: Feels better, no nausea, less abdominal distention and pain. Small BM today. O: NAD, alert and oriented. Fluent speech. NGT. Lungs are clear, normal rate and effort. Heart is regular, no murmur gallop or rub. Abdomen is soft, still distended. Extremities are free of edema. Assessment and plan: 1. Acute bowel obstruction, present on admission. Active and improving. -incarcerated sigmoid bowel in left inguinal hernia secondary to severe constipation. -NG tube placement, fleets enemas to relieve abdominal distention and prepared for surgical treatment. -appreciate General surgery consult and assistance. 2. Severe constipation, active and improving. -check TSH, begin routine fleets enema. 3. Hypertension, stable. -holding chlorthalidone, potassium chloride, amlodipine and metoprolol. 4. Gout, stable. -holding allopurinol PLAN: -continue NG tube decompression, ice chips okay. -continue aggressive bowel program from below. -monitor WBC and abdominal exam. Anticipate at least 2 additional midnights of care being required to resolve his problem. SCD for DVT prevention. His is his backup decision maker. Exam Vital Signs (past 8 hours): Oxygen Delivery Method Room Air Oxygen Flow Rate 0 Objective Labs 03/19/25 06:55 03/19/25 06:55 Labs: Laboratory Results - last 24 hr 03/18/25 03/19/25 12:55 06:55 WBC 15.3 H 10.2 RBC 4.66 3.95 L Hgb 14.0 12.0 L Hct 41.3 34.8 L MCV 88.7 88.2 MCH 30.1 30.5 MCHC 33.9 34.5 RDW 14.1 13.7 Plt Count 487 H 406 H Neut % (Auto) 85.5 H 79.6 H Lymph % (Auto) 6.5 L 8.7 L [place] % (Auto) 7.2 10.8 Eos % (Auto) 0.1 L 0.3 L Baso % (Auto) 0.7 0.6 Neut # (Auto) 85260 H 8100 H Lymph # (Auto) 1000 L 900 L [place] # (Auto) 1100 H 1100 H Eos # (Auto) 0 0 Baso # (Auto) 100 100 Sodium 136 L 138 Potassium 4.0 3.2 L Chloride 94 L 101 Carbon Dioxide 23 25 BUN 25 H 21 H Creatinine 0.84 0.70 Estimated GFR > 60 > 60 BUN/Creatinine Ratio 29.8 H 30.0 H Glucose 152 H 119 H Lactate 1.7 Calcium 9.6 8.5 Total Bilirubin 0.7 0.4 AST 35 26 ALT 14 10 Alkaline Phosphatase 106 75 Total Protein 8.7 H 6.8 Albumin 4.6 3.5 Globulin 4.1 3.3 Albumin/Globulin Ratio 1.1 1.1 Lipase 89 TSH 1.78 PFSH Medical History Mitral valve regurgitation Acne (~1965) Fever (~1972) Allergies (~1980) Mumps (~1953) Measles (~1952) Chicken pox (~1952) Peptic ulcer disease (~1970) Skin cancer (~2006) Basal cell carcinoma (2017) Melanoma (Unknown) Hypertension (Unknown) Hyperlipemia (Unknown) Idiopathic gout (02/11/15) Mixed hyperlipidemia (02/11/15) Essential hypertension (02/11/15) Surgical History Hx of shoulder surgery (~1971) Family History Father Peritonitis Grandfather No problems noted. Grandmother No problems noted. Mother Dementia Grandfather History of heart disease Grandmother No problems noted. Social History Smoking Status: Former smoker Tobacco: How many years used: 30 second hand exposure: Yes (sometimes, but I try to avoid it.) alcohol intake: current (a glass of wine 2 to 3 times a week.) substance use type: does not use Assessment & Plan Time-Based Coding :: [TOTAL MINUTES] spent with patient and on the chart (including review of chart, obtaining history, exam, reviewing outside data, placing orders, documenting exam and treatment plan, and counseling patient) on [DATE].
--- NOTE | 2025-03-19 09:45 | DI.RAD.S_ITS ---
PROCEDURE: XR ABDOMEN 1V INDICATIONS: NGT placement TECHNIQUE: One view of the abdomen acquired. COMPARISON: [facility], CT, CT ABDOMEN PELVIS W CON, 03/18/2025, 13:20. FINDINGS: Surgical changes and devices: An NG tube is been placed, projecting to the body of the stomach. Bowel: In review of the associated CT scan from 03/18/2025, it appears that the level of obstruction may be secondary to incarceration of a loop of sigmoid within a left inguinal hernia. Soft tissues: No suspicious abdominal calcifications. Visualized solid organ contours appear normal in size. Bones: No suspicious bony lesions. IMPRESSION: 1. NG tube in satisfactory position. 2. Suspect that this is a colonic obstruction secondary to incarcerated sigmoid. Comment: Findings were discussed with Dr. Flores on 03/19/2025 at 1026 hours. Dictated by: Francisco Mccoy M.D. on 03/19/2025 at 10:22 Approved by: Francisco Mccoy M.D. on 03/19/2025 at 10:30
--- NOTE | 2025-03-19 09:48 | P.PN_ITS ---
Subjective Subjective Date Patient Seen: 03/19/25 Time Patient Seen: 09:48 Interval history: Patient had 3 large bowel movements overnight, and 1 this a.m. reports abdomen less distended. Without complaints of pain. NG tube patent. Ambulating to toilet. NPO with scant ice chips. Acute abdominal series suggest continued obstructive process including small bowel and colon. Exam Vital Signs (past 8 hours): Oxygen Delivery Method Room Air Oxygen Flow Rate 0 Narrative Exam Narrative: Alert and oriented x4 NG tube patent and functional Respirations clear to auscultation bilaterally; no wheezes rales or rhonchi Regular rate and rhythm without murmur Abdomen less tympanitic; less distended but continue with significant distention. Nontender on palpation. Move all extremities x4 Objective Labs 03/19/25 06:55 03/19/25 06:55 Labs: Laboratory Results - last 24 hr 03/18/25 03/19/25 12:55 06:55 WBC 15.3 H 10.2 RBC 4.66 3.95 L Hgb 14.0 12.0 L Hct 41.3 34.8 L MCV 88.7 88.2 MCH 30.1 30.5 MCHC 33.9 34.5 RDW 14.1 13.7 Plt Count 487 H 406 H Neut % (Auto) 85.5 H 79.6 H Lymph % (Auto) 6.5 L 8.7 L [place] % (Auto) 7.2 10.8 Eos % (Auto) 0.1 L 0.3 L Baso % (Auto) 0.7 0.6 Neut # (Auto) 15928 H 8100 H Lymph # (Auto) 1000 L 900 L [place] # (Auto) 1100 H 1100 H Eos # (Auto) 0 0 Baso # (Auto) 100 100 Sodium 136 L 138 Potassium 4.0 3.2 L Chloride 94 L 101 Carbon Dioxide 23 25 BUN 25 H 21 H Creatinine 0.84 0.70 Estimated GFR > 60 > 60 BUN/Creatinine Ratio 29.8 H 30.0 H Glucose 152 H 119 H Lactate 1.7 Calcium 9.6 8.5 Total Bilirubin 0.7 0.4 AST 35 26 ALT 14 10 Alkaline Phosphatase 106 75 Total Protein 8.7 H 6.8 Albumin 4.6 3.5 Globulin 4.1 3.3 Albumin/Globulin Ratio 1.1 1.1 Lipase 89 TSH 1.78 PFSH Medical History Mitral valve regurgitation Acne (~1964) Fever (~1972) Allergies (~1980) Mumps (~1953) Measles (~1952) Chicken pox (~1952) Peptic ulcer disease (~1970) Skin cancer (~2006) Basal cell carcinoma (2017) Melanoma (Unknown) Hypertension (Unknown) Hyperlipemia (Unknown) Idiopathic gout (02/11/15) Mixed hyperlipidemia (02/11/15) Essential hypertension (02/11/15) Surgical History Hx of shoulder surgery (~1971) Family History Father Peritonitis Grandfather No problems noted. Grandmother No problems noted. Mother Dementia Grandfather History of heart disease Grandmother No problems noted. Social History Smoking Status: Former smoker Tobacco: How many years used: 30 second hand exposure: Yes (sometimes, but I try to avoid it.) alcohol intake: current (a glass of wine 2 to 3 times a week.) substance use type: does not use Assessment & Plan Assessment & Plan narrative: 74-year-old gentleman with functional colon obstruction and concurrent small bowel obstruction complicated by an incarcerated left inguinal hernia -NG tube advanced 10 cm. Will obtain follow-up film to check placement. -leukocytosis has resolved, however, would suggest continuation of antibiotics -continue NG tube decompression. Would also suggest continuation of removal of sigmoid and rectal impaction -although abdominal distention has improved, I truly feel it would benefit the patient to decompress the small and large bowel before attempts at surgical repair. This was discussed with Dr. Meneses and with the patient and his . We will continue to follow. Time-Based Coding :: [TOTAL MINUTES] spent with patient and on the chart (including review of chart, obtaining history, exam, reviewing outside data, placing orders, documenting exam and treatment plan, and counseling patient) on [DATE]. PROFEE Music Publicist Document charge(s): No Charge Codes Subsequent inpatient/observation care: [id number]
--- NOTE | 2025-03-19 12:23 | CM.DANOTE ---
Initial DCP Assessment Note. Review EMR and PT Interview. Met with patient at bedside to discuss discharge needs.PT is alert x 4 sitting up in bed. No acute distress. Independent. Lives with spouse. Payor:??[facility] PCP: Summary & Plan:74 y/o male arrived to ED vis POV c/o ABD Pain. Admitted INPT. Dx. SBO. Plan: NPO, NGT, Surgical consult. Discharge home with spouse when improved.? ? Discharge Planning/Care Management CM Discharge Assessment Start: 03/18/25 16:43 Freq: Status: Active Protocol: Document 03/19/25 12:22 (Rec: 03/19/25 12:23 [id number]) Discharge Planning Assessment Assigned Discharge Jenni Good RN CM Cigarette Inspector Provider Dr. Kinney Insurance Medicare Advance Directives? No History Provided By Patient Has Patient been No admitted in last 30 days? Prior Living House Arrangements Household Members spouse Type of Drives own vehicle transporation used prior to admit Independent with ADL Yes 's Is patient alert and Yes oriented? Barriers to No Discharge Referrals Initiated None needed Review Status In Process Please Provide Date 03/19/25 Initial DC Assessment Was Performed Next Review Type Continued Stay Review
[2025-03-19 12:43] VITALS: BP 132/59; PULSE 103; RESP 18; TEMP 36.7; O2SAT 96
[2025-03-19] MEDS: LACTATED RINGERS 1,000 ML 84 ML IV (12:56)
--- NOTE | 2025-03-19 13:05 | EKG_ITS ---
[facility] [address] [place] [address] Test Date: 2025-03-19 Pat Name: Rio Page Department: Room: 219 Gender: Male News Analyst: Gurpreet LOWE : 1950 Requested By: Order Number: [id number] Reading MD: Yousif Meneses Measurements Intervals Burket Rate: 107 P: 37 NM: 124 QRS: 38 QRSD: 92 T: 36 QT: 356 QTc: 475 Interpretive Statements Sinus tachycardia with premature supraventricular complexes and with occasional premature ventricular complexes Nonspecific ST and T wave abnormality Electronically Signed On 03-19-2025 14:15:03 PST by Yousif Meneses
[2025-03-19] MEDS: POTASSIUM CHLORIDE IN WATER 10 MEQ/100 ML PIGGYBACK 100 MEQ IV ×4 (13:39→17:10)
[2025-03-19] MEDS: METOPROLOL TARTRATE 5 MG/5 ML INJ IV (14:18)
[2025-03-19 21:01] VITALS: BP 125/72; PULSE 83; RESP 18; TEMP 36.8; O2SAT 93
[2025-03-20] VITALS (16 sets, daily range): BP systolic 113–150; BP diastolic 49–75; PULSE 74–95; RESP 16–20; TEMP 36.2–37; O2SAT 92–98
--- NOTE | 2025-03-20 | PATH_ITS ---
[facility] Accession Number: [id number] No. of containers..01 Tissue . 01 Material submitted: . hernia - LEFT HERNIA SAC . 01 Diagnosis: LEFT HERNIA SAC: Consistent with hernia sac. MRV 03/25/2025 1222 Local . 01 Electronically signed: . Natalya Avalos MD, Pathologist NPI- [id number] . 01 Gross description: . Received in formalin labeled with two patient identifiers and left hernia sac, is a 7.2 x 6.1 x 2.1 cm aggregate of multiple [place]-pink to yellow irregular portions of fibrofatty and fibromembranous tissue fragments. Sectioning shows [place]-pink, membranous and yellow lobulated adipose cut surfaces. No areas of induration is identified. Oracle Database Architect sections are submitted in cassette A1. ([id number]) /RIDDHI 03/22/20251941 Local . 01 Pathologist provided ICD-10: K41.90 . 01 CPT . 223003 Specimen Comment: A courtesy copy of this report has been sent to [facility] Pathology Performed at: [address] [address], [place], [place] [id number] MD Campos Burnett MD Phone: [phone]
[2025-03-20] MEDS: SODIUM CHLORIDE 0.9% 1,000 ML 100 ML IV ×2 (00:25→17:21)
[2025-03-20 05:50] LABS: Add Manual Diff / Slide Review NO; Hematocrit 35.6 % (41-53); Hemoglobin 12.2 g/dL (13.5-17.5); Lymphocytes Absolute Auto 1300 /uL (1100-4500); Mean Corpuscular HGB Conc 34.3 % (30-36); Mean Corpuscular Hemoglobin 30.5 PG (26-34); Mean Corpuscular Volume 88.9 fL (80-100); Platelet Count 412 X10^3/uL (150-400)
--- NOTE | 2025-03-20 06:00 | DI.RAD.S_ITS ---
PROCEDURE: XR KUB INDICATIONS: TRISTIAN TECHNIQUE: One view of the abdomen acquired. COMPARISON: [facility], CT, CT ABDOMEN PELVIS W CON, 03/18/2025, 13:20. [facility], CR, XR KUB, 03/19/2025, 6:26. FINDINGS: Surgical changes and devices: NG tube projects over the gastric bubble. Bowel: Dilated fluid-filled loops of colon and small bowel are present although mildly decreased compared to prior exam. Gas continues to project over the left lower quadrant. It is noted inguinal hernia containing bowel loops was present on 03/18/2025 CT. Soft tissues: No suspicious abdominal calcifications. Visualized solid organ contours appear normal in size. Bones: No suspicious bony lesions. IMPRESSION: Persistent appearance of obstruction although slightly decreased compared to prior exam. Gas is persistent overlying the left lower quadrant consistent with prior finding of bowel containing hernia. Dictated by: Sarah Belle M.D. on 03/20/2025 at 9:09 Approved by: Sarah Belle M.D. on 03/20/2025 at 9:11
[2025-03-20 06:02] LABS: Blood Urea Nitrogen 18 mg/dL (9-20); Calcium 8.5 mg/dL (8.4-10.2); Carbon Dioxide 26 mmol/L (22-32); Chloride 102 mmol/L (98-107); Estimated Glomerular Filt Rate > 60 mL/min (>60); Glucose 104 mg/dL (70-99); HEMOLYSIS < 15 (0-50); Magnesium 2.1 mg/dL (1.6-2.3); Potassium 3.3 mmol/L (3.4-5.1); Sodium 138 mmol/L (137-145)
[2025-03-20] MEDS: PIPERACILLIN/TAZO 3.375 GM in SODIUM CHLORIDE 0.9% 100 ML IV ×2 (06:57→17:20)
--- NOTE | 2025-03-20 08:08 | P.PN_ITS ---
Subjective Subjective Date Patient Seen: 03/20/25 Time Patient Seen: 07:15 Interval history: Without complaints of pain overnight. Distention slightly less. NGT patent. No N/V. No BM/flatus. HR decreased to 70-80's overnight from 110's. Exam Vital Signs (past 8 hours): - 03/20/25 00:10 03/20/25 05:07 Temperature 98.6 F 97.9 F Pulse Rate 95 H 89 Respiratory Rate 18 18 Blood Pressure 150/75 H 144/49 H Pulse Oximetry 94 97 Oxygen Flow Rate 0 0 Oxygen Delivery Method Room Air Oxygen Flow Rate 0 Narrative Exam Narrative: A&O x 4 RRR at this time at 74/min RCTA Abd distended, but non-tender; hernia not reduced. Good BS ABRAHAM x 4 Objective Labs 03/20/25 05:00 03/20/25 05:00 Labs: Laboratory Results - last 24 hr 03/20/25 05:00 WBC 11.3 H RBC 4.01 L Hgb 12.2 L Hct 35.6 L MCV 88.9 MCH 30.5 MCHC 34.3 RDW 13.8 Plt Count 412 H Neut % (Auto) 75.0 Lymph % (Auto) 11.9 L [place] % (Auto) 11.5 Eos % (Auto) 0.6 L Baso % (Auto) 1.0 Neut # (Auto) 8400 H Lymph # (Auto) 1300 [place] # (Auto) 1300 H Eos # (Auto) 100 Baso # (Auto) 100 Sodium 138 Potassium 3.3 L Chloride 102 Carbon Dioxide 26 BUN 18 Creatinine 0.73 Estimated GFR > 60 BUN/Creatinine Ratio 24.7 H Glucose 104 H Calcium 8.5 Magnesium 2.1 PFSH Medical History Mitral valve regurgitation Acne (~1965) Fever (~1972) Allergies (~1980) Mumps (~1953) Measles (~1952) Chicken pox (~1952) Peptic ulcer disease (~1970) Skin cancer (~2006) Basal cell carcinoma (2017) Melanoma (Unknown) Hypertension (Unknown) Hyperlipemia (Unknown) Idiopathic gout (02/11/15) Mixed hyperlipidemia (02/11/15) Essential hypertension (02/11/15) Surgical History Hx of shoulder surgery (~1972) Family History Father Peritonitis Grandfather No problems noted. Grandmother No problems noted. Mother Dementia Grandfather History of heart disease Grandmother No problems noted. Social History household members: spouse Smoking Status: Former smoker Tobacco: How many years used: 30 second hand exposure: Yes (sometimes, but I try to avoid it.) alcohol intake: current substance use type: does not use Assessment & Plan Assessment & Plan narrative: 74 yo male with incarcerated left inguinal hernia and bowel obstruction -WBC at 11.2; KUB essentially unchanged -HR now regular 70's -continue Metoprolol -to OR this a.m. Again d/w family the possibility of 2 incisions, bowel resection and possible bowel injury with ostomy -continue abx Time-Based Coding :: [TOTAL MINUTES] spent with patient and on the chart (including review of chart, obtaining history, exam, reviewing outside data, placing orders, documenting exam and treatment plan, and counseling patient) on [DATE]. PROFEE Repossession Agent Document charge(s): No Charge Codes Subsequent inpatient/observation care: [id number]
[2025-03-20] MEDS: METOPROLOL TARTRATE 5 MG/5 ML INJ IV ×2 (08:34→20:38)
[2025-03-20] MEDS: LACTATED RINGERS 1,000 ML 42 ML IV ×2 (09:20→11:35)
--- NOTE | 2025-03-20 09:26 | SUR.HOLD ---
Patient to pre-op holding area with PACU nurse in stable condition; GCS 15; denies nausea; c/o mild abdominal pain and distension due to bowel obstruction. NG tube noted to right nare; placed NG tube to low intermittent suction; atrial fib noted on telemetry at a controlled rate in the 80s; denies CP or SOB. bowel sounds absent. New IV started to left hand due to surgical intervention pending.
--- NOTE | 2025-03-20 09:28 | PM.PN.1 ---
Subjective Subjective Interval history: This is a 74-year-old male with a history of gout, hypertension, malignant melanoma and hyperlipidemia who presents with acute bowel obstruction related to severe obstipation and a left inguinal hernia. He has been evaluated by General surgery with the conclusion that his severe constipation has entrapped portions of his sigmoid colon in the inguinal hernia causing significant distention. An attempt to clear the stool with enema and NG tube prior to attempts for relief of bowel obstruction and hernia surgery is the plan. The hernia has been present for about a year and the distention, nausea, vomiting for about 1 week. The white blood count is 15.3. D/W Dr. Perez(surgery): Examined imaging are improving. The plan is to continue NG tube decompression and evacuation of stool from colon. 03/19: Surgery was canceled due to new onset atrial fibrillation with rapid response. Rates were controlled with metoprolol 5 IV q.6. 03/20: Stable for surgery. Plan is operative repair of hernia. He underwent operative repair of the hernia without complication. He arrives up in the [address] with a distended abdomen and good pain control. Surgery has requested NG-tube overnight to suction. S: No pain or dyspnea. O: NAD, alert and oriented. Fluent speech. NGT. Lungs are clear, normal rate and effort. Heart is regular, no murmur gallop or rub. Abdomen is soft, still distended. Extremities are free of edema. Assessment and plan: 1. Acute bowel obstruction, present on admission. Active and improving. -incarcerated sigmoid bowel in left inguinal hernia secondary to severe constipation. -status post hernia repair as noted above. 2. Incarcerated inguinal hernia, status post repair. 3. Hypertension, stable. -holding chlorthalidone, potassium chloride, amlodipine and metoprolol. 4. Gout, stable. -holding allopurinol PLAN: -continue NG tube decompression overnight. -diet advance we will be per General surgery. -add subQ heparin for DVT prophylaxis. SCD for DVT prevention. His is his backup decision maker. Exam Vital Signs (past 8 hours): - 03/20/25 05:07 03/20/25 09:00 Temperature 97.9 F 97.1 F L Pulse Rate 89 87 Respiratory Rate 18 20 Blood Pressure 144/49 H 132/67 Pulse Oximetry 97 96 Oxygen Delivery Method Room Air Oxygen Flow Rate 0 Oxygen Delivery Method Room Air Oxygen Flow Rate 0 Objective Labs 03/20/25 05:00 03/20/25 05:00 Labs: Laboratory Results - last 24 hr 03/20/25 05:00 WBC 11.3 H RBC 4.01 L Hgb 12.2 L Hct 35.6 L MCV 88.9 MCH 30.5 MCHC 34.3 RDW 13.8 Plt Count 412 H Neut % (Auto) 75.0 Lymph % (Auto) 11.9 L Franklin % (Auto) 11.5 Eos % (Auto) 0.6 L Baso % (Auto) 1.0 Neut # (Auto) 8400 H Lymph # (Auto) 1300 Franklin # (Auto) 1300 H Eos # (Auto) 100 Baso # (Auto) 100 Sodium 138 Potassium 3.3 L Chloride 102 Carbon Dioxide 26 BUN 18 Creatinine 0.73 Estimated GFR > 60 BUN/Creatinine Ratio 24.7 H Glucose 104 H Calcium 8.5 Magnesium 2.1 PFSH Medical History Mitral valve regurgitation Acne (~1965) Fever (~1972) Allergies (~1980) Mumps (~1953) Measles (~1952) Chicken pox (~1952) Peptic ulcer disease (~1969) Skin cancer (~2006) Basal cell carcinoma (2017) Melanoma (Unknown) Hypertension (Unknown) Hyperlipemia (Unknown) Idiopathic gout (02/11/15) Mixed hyperlipidemia (02/11/15) Essential hypertension (02/11/15) Surgical History Hx of shoulder surgery (~1971) Family History Father Peritonitis Grandfather No problems noted. Grandmother No problems noted. Mother Dementia Grandfather History of heart disease Grandmother No problems noted. Social History household members: spouse Smoking Status: Former smoker Tobacco: How many years used: 30 second hand exposure: Yes (sometimes, but I try to avoid it.) alcohol intake: current substance use type: does not use Assessment & Plan Time-Based Coding :: [TOTAL MINUTES] spent with patient and on the chart (including review of chart, obtaining history, exam, reviewing outside data, placing orders, documenting exam and treatment plan, and counseling patient) on [DATE].
--- NOTE | 2025-03-20 10:32 | SUR.OPER ---
Supine on padded OR bed, head on pillow, arms secured on padded arm boards at <90 degrees abduction, legs uncrossed, safety belt at thigh, tape over blanket over lower legs. FINAL POSITIONING DONE BY PROVIDER
--- NOTE | 2025-03-20 12:07 | SUR.OPER ---
FAMILY COMMUNICATION. PER PROVIDER, WILLIAM AZEVEDO RN, LEFT MESSAGE FOR FAMILY WITH UPDATE AT [phone]
--- NOTE | 2025-03-20 14:38 | P.OP_ITS ---
Operative Date/Time/Diagnoses Date of procedure: 03/20/25 Time of procedure: 14:39 Pre-op diagnosis: Incarcerated left inguinal hernia with SBO and functional large bowel obstruction Post-op diagnosis: same Procedure & Clinicians Procedure: Repair of Chronically Incarcerated Left Inguinal Hernia Repair with mesh Same procedure(s) as scheduled: Yes Surgeon: Pam Perez Assisted?: No Anesthesia Type: General Operative Notes Findings: Chronically incarcerated, large segment, indirect hernia containing attenuated, elongated small bowel with fecalization of stool and a sliding component involving the sigmoid colon; 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 His heart rate was in the 70s with a regular rate and sinus rhythm. Following informed consent, the patient was taken to the operating room and placed in the supine position. General endotracheal anesthesia was successfully initiated. A Jay catheter was then inserted and bilateral sequential compression devices placed on both lower extremities. The abdomen was prepped and draped from the xiphoid to mid thigh to include the scrotum and penis. Sharp dissection with a 11. Blade was used to create an incision in the direction of the left left pubis to the left superior anterior iliac spine. The incision was placed approximately 3 cm below this area immediately above the groin crease. Of note was extreme attenuation of subcutaneous tissues over the left groin with palpable bowel in the left scrotum. Careful dissection was used Metzenbaum scissors was taken in order to avoid injury to the nerve and vascular structures. There appeared thickened peritoneal sac, with dilated venous structures noted within the layers underlying the sac. Careful dissection was undertaken. Upon entering the peritoneal sac, there was thickened peritoneal fluid resembling honey, which reflected the chronicity of the incarceration as well as dilated small bowel with what appeared to be an inspissated ball of stool approximately the size of a tennis ball. There was also a component of a sliding hernia involving the sigmoid colon. This could not be reduced as the internal ring appeared to be under tension with both small and large bowel. However, neither segment of bowel appeared to be compromised and was pink and healthy. Great care was taken to open the internal ring with Metzenbaum scissors in the 2 o'clock position to avoid injury to underlying vascular and nerve structures. Careful dissection was then undertaken to locate the sac which was impressively thickened. Once the sac was opened, given the fact that the internal ring was enlarged, the small bowel could be reduced. The sigmoid colon was also reduced. Great care was taken to protect the cord structures which were eventually encompassed within a Yenifer drain. Of note, the cord structures were impressively adherent to what appeared to be a remnant of the gubernaculum testis. Nerve and vascular structures were protected. 0 chromic was used in a pursestring fashion to close the peritoneal defect. There was significant residual sac which was carefully trimmed and submitted to pathology. Using an 0 Prolene, the internal ring was repaired. Great care was taken to avoid injury to underlying nerve and vascular structures. A segment of Bard mesh was then trimmed to fit and placed on the in guinal floor. The mesh was trimmed such that the cord structures had adequate room for egress. It was attached to the inguinal floor utilizing [address]. Hemostasis was maintained throughout. The wound was episodically irrigated as well. The cord was replaced in the appropriate position. The external oblique was very attenuated, but was reapproximated to recreate the external ring. The subcutaneous tissues were closed in an interrupted fashion with 3 0 Vicryl. The wound was then closed at the subcuticular level with 3-0 Monocryl. The wound was injected with 10 cc of 0.5% Marcaine with epinephrine. Sponge and needle counts were correct. A tap block was then provided per anesthesia. Wound was cleansed and dried and a dressing was applied. The patient was then extubated and taken to the recovery area in stable condition. Complications: none Post-operative Condition: stable Disposition: PACU
[2025-03-20] MEDS: POTASSIUM CHLORIDE IN WATER 10 MEQ/100 ML PIGGYBACK 100 MEQ IV ×3 (18:26→21:35)
[2025-03-21] VITALS (7 sets, daily range): BP systolic 104–139; BP diastolic 42–66; PULSE 54–76; RESP 16–20; TEMP 36.3–36.9; O2SAT 92–98
[2025-03-21] MEDS: PIPERACILLIN/TAZO 3.375 GM in SODIUM CHLORIDE 0.9% 100 ML IV ×4 (00:54→22:52)
[2025-03-21] MEDS: POTASSIUM CHLORIDE IN WATER 10 MEQ/100 ML PIGGYBACK 100 MEQ IV (01:04)
[2025-03-21] MEDS: METOPROLOL TARTRATE 5 MG/5 ML INJ IV ×2 (02:20→09:10)
--- NOTE | 2025-03-21 07:00 | DI.RAD.S_ITS ---
PROCEDURE: XR KUB INDICATIONS: Post op TECHNIQUE: One view of the abdomen acquired. COMPARISON: [facility], CR, XR KUB, 03/20/2025, 6:04. [facility], CR, XR KUB, 03/19/2025, 6:26. FINDINGS: Surgical changes and devices: None. Bowel: Bowel gas pattern is again seen to be abnormal with a generalized increased retention of air within the large and small bowel. No free air seen. Presumed postoperative ileus. Soft tissues: No suspicious abdominal calcifications. Visualized solid organ contours appear normal in size. Bones: No suspicious bony lesions. IMPRESSION: Persistent presumed postoperative ileus with generalized moderate gas prominence throughout the small and large bowel. Dictated by: Hosea Moreau M.D. on 03/21/2025 at 13:15 Approved by: Hosea Moreau M.D. on 03/21/2025 at 13:16
[2025-03-21] MEDS: PANTOPRAZOLE 40 MG VIAL IV (08:53)
--- NOTE | 2025-03-21 11:14 | P.PN_ITS ---
Subjective Subjective Date Patient Seen: 03/21/25 Time Patient Seen: 10:30 Interval history: The patient is 1 day status post a left inguinal herniorrhaphy for incarcerated inguinal hernia with small-bowel obstruction. He has no complaints of incisional pain. He denies any nausea and states he is indeed hungry. He is passing flatus and stool. Exam Vital Signs (past 8 hours): - 03/21/25 04:00 03/21/25 09:01 Temperature 97.4 F L 98.0 F Pulse Rate 74 75 Respiratory Rate 18 18 Blood Pressure 139/66 136/54 L Pulse Oximetry 96 97 Oxygen Flow Rate 0 Oxygen Delivery Method Room Air Oxygen Flow Rate 0 Narrative Exam Narrative: Lungs are clear to auscultation bilaterally Cardiac reveals a regular rate and rhythm with a harsh holosystolic murmur. Abdomen is distended, nontender with high-pitched bowel sounds. Left groin dressing is dry and intact. Objective Imaging Abdominal x-ray: My impression: The patient has distended loops of small bowel with gas extending into the colon. There are no air-fluid levels that are visible. Labs 03/20/25 05:00 03/20/25 05:00 [facility] Medical History Mitral valve regurgitation Acne (~1965) Fever (~1972) Allergies (~1980) Mumps (~1953) Measles (~1952) Chicken pox (~1952) Peptic ulcer disease (~1970) Skin cancer (~2006) Basal cell carcinoma (2017) Melanoma (Unknown) Hypertension (Unknown) Hyperlipemia (Unknown) Idiopathic gout (02/11/15) Mixed hyperlipidemia (02/11/15) Essential hypertension (02/11/15) Surgical History Hx of shoulder surgery (~1971) Family History Father Peritonitis Grandfather No problems noted. Grandmother No problems noted. Mother Dementia Grandfather History of heart disease Grandmother No problems noted. Social History household members: spouse Smoking Status: Former smoker Tobacco: How many years used: 30 second hand exposure: Yes (sometimes, but I try to avoid it.) alcohol intake: current substance use type: does not use Assessment & Plan Assessment and plan (1) Inguinal hernia: Qualifiers: Laterality: unilateral Obstruction and gangrene presence: without obstruction or gangrene Recurrence: not specified as recurrent Qualified Code(s): K40.90 - Unilateral inguinal hernia, without obstruction or gangrene, not specified as recurrent Status: Acute (2) Small bowel obstruction: Status: Acute (3) Mitral valve regurgitation: Qualifiers: Cardiac valve disease etiology: nonrheumatic Qualified Code(s): I34.0 - Nonrheumatic mitral (valve) insufficiency Status: Acute Plan Patient is passing flatus and denies any nausea vomiting. We will start him on a clear liquid diet today. Time-Based Coding :: [TOTAL MINUTES] spent with patient and on the chart (including review of chart, obtaining history, exam, reviewing outside data, placing orders, documenting exam and treatment plan, and counseling patient) on [DATE]. PROFEE Customer Care Manager Document charge(s): Yes
--- NOTE | 2025-03-21 11:39 | PC.NURSE ---
1135:Jay catheter removed. Pt tolerated well. pt urinated after remove of catheter.
--- NOTE | 2025-03-21 12:40 | PM.PN.1 ---
Subjective Subjective Date Patient Seen: 03/21/25 Interval history: This is a 74-year-old male with a history of gout, hypertension, malignant melanoma and hyperlipidemia who presents with acute bowel obstruction related to severe obstipation and a left inguinal hernia. He has been evaluated by General surgery with the conclusion that his severe constipation has entrapped portions of his sigmoid colon in the inguinal hernia causing significant distention. An attempt to clear the stool with enema and NG tube prior to attempts for relief of bowel obstruction and hernia surgery is the plan. The hernia has been present for about a year and the distention, nausea, vomiting for about 1 week. The white blood count is 15.3. D/W Dr. Perez(surgery): Examined imaging are improving. The plan is to continue NG tube decompression and evacuation of stool from colon. 03/19: Surgery was canceled due to new onset atrial fibrillation with rapid response. Rates were controlled with metoprolol 5 IV q.6. 03/20: Stable for surgery. Plan is operative repair of hernia. He underwent operative repair of the hernia without complication. He arrives up in the [address] with a distended abdomen and good pain control. Surgery has requested NG-tube overnight to suction. 03/21: Potassium 3.3 today. Receiving additional potassium supplement. Changing to oral medications of pantoprazole and metoprolol. Continue monitoring electrolytes. S: No pain or dyspnea. O: NAD, alert and oriented. Fluent speech. Lungs are clear, normal rate and effort. Heart is regular, no murmur gallop or rub. Abdomen is soft, no distention. No significant left groin tenderness. Extremities are free of edema. Assessment and plan: 1. Acute bowel obstruction, present on admission. Active and improving. -incarcerated sigmoid bowel in left inguinal hernia secondary to severe constipation. -status post hernia repair as noted above. 2. Incarcerated inguinal hernia, status post repair. 3. Hypertension, stable. -Resumed chlorthalidone, potassium chloride, amlodipine and metoprolol. 4. Atrial Fibrillation -metoprolol 5. Gout, stable. -resumed allopurinol PLAN: -Resume home medications p.o.. -diet advance we will be per General surgery. -add subQ heparin for DVT prophylaxis. -supplement potassium and monitor electrolytes. SCD and Heparin for DVT prevention. His is his backup decision maker. Exam Vital Signs (past 8 hours): - 03/21/25 09:01 Temperature 98.0 F Pulse Rate 75 Respiratory Rate 18 Blood Pressure 136/54 L Pulse Oximetry 97 Oxygen Flow Rate 0 Oxygen Delivery Method Room Air Oxygen Flow Rate 0 Objective Labs 03/20/25 05:00 03/20/25 05:00 [facility] Medical History Mitral valve regurgitation Acne (~1965) Fever (~1972) Allergies (~1980) Mumps (~1953) Measles (~1952) Chicken pox (~1952) Peptic ulcer disease (~1969) Skin cancer (~2006) Basal cell carcinoma (2017) Melanoma (Unknown) Hypertension (Unknown) Hyperlipemia (Unknown) Idiopathic gout (02/11/15) Mixed hyperlipidemia (02/11/15) Essential hypertension (02/11/15) Surgical History Hx of shoulder surgery (~1971) Family History Father Peritonitis Grandfather No problems noted. Grandmother No problems noted. Mother Dementia Grandfather History of heart disease Grandmother No problems noted. Social History household members: spouse Smoking Status: Former smoker Tobacco: How many years used: 30 second hand exposure: Yes (sometimes, but I try to avoid it.) alcohol intake: current substance use type: does not use Assessment & Plan Time-Based Coding :: [TOTAL MINUTES] spent with patient and on the chart (including review of chart, obtaining history, exam, reviewing outside data, placing orders, documenting exam and treatment plan, and counseling patient) on [DATE].
[2025-03-21] MEDS: SODIUM CHLORIDE 0.9% 1,000 ML 100 ML IV (12:43)
[2025-03-21] MEDS: METOPROLOL IR 25 MG TABLET PO (16:00)
[2025-03-21] MEDS: ACETAMINOPHEN 325 MG TABLET 650 MG PO (20:31)
[2025-03-21] MEDS: ATORVASTATIN 20 MG TABLET PO (20:31)
[2025-03-21] MEDS: HEPARIN 5,000 UNIT/ML VIAL 5000 UNIT SUBCUT (20:32)
[2025-03-22] MEDS: SODIUM CHLORIDE 0.9% 1,000 ML 100 ML IV ×3 (02:57→23:26)
[2025-03-22 06:14] LABS: Blood Urea Nitrogen 15 mg/dL (9-20); Calcium 7.7 mg/dL (8.4-10.2); Carbon Dioxide 27 mmol/L (22-32); Chloride 107 mmol/L (98-107); Estimated Glomerular Filt Rate > 60 mL/min (>60); Glucose 99 mg/dL (70-99); HEMOLYSIS < 15 (0-50); Sodium 136 mmol/L (137-145)
[2025-03-22 06:21] LABS: Potassium 2.7 mmol/L (3.4-5.1)
[2025-03-22] MEDS: PANTOPRAZOLE DR 40 MG TABLET PO (06:41)
[2025-03-22] MEDS: PIPERACILLIN/TAZO 3.375 GM in SODIUM CHLORIDE 0.9% 100 ML IV ×3 (06:41→23:10)
[2025-03-22] MEDS: POTASSIUM CHLORIDE 20 MEQ/15 ML UDC 40 MEQ PO ×2 (06:55→15:28)
[2025-03-22] MEDS: HEPARIN 5,000 UNIT/ML VIAL 5000 UNIT SUBCUT ×2 (08:57→20:53)
[2025-03-22] MEDS: SODIUM CHLORIDE 0.9% FLUSH 10 ML IV ×2 (08:57→20:53)
--- NOTE | 2025-03-22 09:14 | PC.NURSE ---
Patient is alert and oriented x4, he was incontinent of bowel and bladder this morning. Cleaned up and new brief put on patient. He is able to move around in bed well. He has an incision to the left lower inguinal area with dressing that is cdi. We will get patient up to ambulate a bit later, he ate all of his clear liquid diet.
--- NOTE | 2025-03-22 11:23 | PM.PN.IH.1 ---
Subjective Subjective Date Patient Seen: 03/22/25 Interval history: Patient has no complaints. He tolerated clear liquid diet. He continues to pass flatus and stool. Exam Vital Signs (past 8 hours): Oxygen Delivery Method Room Air Oxygen Flow Rate 0 Narrative Exam Narrative: Lungs are clear to auscultation bilaterally Cardiac reveals a regular rate and rhythm with harsh holosystolic murmur Abdomen is less distended, soft, nontender, with active bowel sounds Incisions clean without induration, erythema, discharge, or ecchymosis. Objective Labs 03/20/25 05:00 03/22/25 04:59 Labs: Laboratory Results - last 24 hr 03/22/25 04:59 Sodium 136 L Potassium 2.7 L* Chloride 107 Carbon Dioxide 27 BUN 15 Creatinine 0.63 L Estimated GFR > 60 BUN/Creatinine Ratio 23.8 H Glucose 99 Calcium 7.7 L PFSH Medical History Mitral valve regurgitation Acne (~1965) Fever (~1972) Allergies (~1980) Mumps (~1953) Measles (~1952) Chicken pox (~1952) Peptic ulcer disease (~1970) Skin cancer (~2006) Basal cell carcinoma (2017) Melanoma (Unknown) Hypertension (Unknown) Hyperlipemia (Unknown) Idiopathic gout (02/11/15) Mixed hyperlipidemia (02/11/15) Essential hypertension (02/11/15) Surgical History Hx of shoulder surgery (~1971) Family History Father Peritonitis Grandfather No problems noted. Grandmother No problems noted. Mother Dementia Grandfather History of heart disease Grandmother No problems noted. Social History household members: spouse Smoking Status: Former smoker Tobacco: How many years used: 30 second hand exposure: Yes (sometimes, but I try to avoid it.) alcohol intake: current substance use type: does not use Assessment & Plan Assessment and plan (1) Inguinal hernia: Qualifiers: Laterality: unilateral Obstruction and gangrene presence: without obstruction or gangrene Recurrence: not specified as recurrent Qualified Code(s): K40.90 - Unilateral inguinal hernia, without obstruction or gangrene, not specified as recurrent Status: Acute (2) Small bowel obstruction: Status: Acute (3) Mitral valve regurgitation: Qualifiers: Cardiac valve disease etiology: nonrheumatic Qualified Code(s): I34.0 - Nonrheumatic mitral (valve) insufficiency Status: Acute (4) Hypokalemia: Status: Acute Plan The patient is doing well and continues to stool and pass flatus. We will advance his diet to regular. Hypokalemia is to be managed by the hospitalist. Time-Based Coding :: [TOTAL MINUTES] spent with patient and on the chart (including review of chart, obtaining history, exam, reviewing outside data, placing orders, documenting exam and treatment plan, and counseling patient) on [DATE]. [employer]EE [employer] Document charge(s): Yes
[2025-03-22] MEDS: CHLORTHALIDONE 25 MG TABLET 12.5 MG PO (15:03)
[2025-03-22] MEDS: METOPROLOL ER 50 MG TABLET PO (15:03)
[2025-03-22 16:00] VITALS: BP 113/59; PULSE 63; RESP 16; TEMP 36.5; O2SAT 98
[2025-03-22 17:30] LABS: HEMOLYSIS 23 (0-50); Potassium 3.7 mmol/L (3.4-5.1)
--- NOTE | 2025-03-22 17:33 | P.PN_ITS ---
Subjective Subjective Interval history: 74-year-old male with gout, hypertension, melanoma, hyperlipidemia who was admitted with an acute bowel obstruction related to severe constipation and left inguinal hernia. Patient underwent repair of the chronically incarcerated left inguinal hernia with mesh on March 20. He reports he is passing some flatus and a bit of stool. His diet has been advanced but he has continued to have a low potassium level. He does feel as though he is making slow but steady progress. He has had no nausea or vomiting. States his pain is at about a 3/10 most of the time. He finds this to be tolerable. Exam Vital Signs (past 8 hours): - 03/22/25 16:00 Temperature 97.7 F Pulse Rate 63 Respiratory Rate 16 Blood Pressure 113/59 L Pulse Oximetry 98 Oxygen Flow Rate 0 Oxygen Delivery Method Room Air Oxygen Flow Rate 0 Narrative Exam Narrative: GEN: Elderly male, very pleasant, Alert and oriented x 3, NAD HEENT:NC, Face symmetric CHEST: Respiratory excursions symmetric, CTAB CV: RRR, 2/6 systolic murmur heard best at the left sternal border, no R/G ABD: Soft, NT/ND, BT present in all 4 quadrants, no organomegaly or masses EXTR: warm, well perfused, no C/C/E SKIN: warm and dry, no rash NEURO: Alert and oriented x 3, nonfocal Objective Labs 03/20/25 05:00 03/22/25 04:59 Labs: Laboratory Results - last 24 hr 03/22/25 04:59 Sodium 136 L Potassium 2.7 L* Chloride 107 Carbon Dioxide 27 BUN 15 Creatinine 0.63 L Estimated GFR > 60 BUN/Creatinine Ratio 23.8 H Glucose 99 Calcium 7.7 L [facility] Medical History Mitral valve regurgitation Acne (~1965) Fever (~1972) Allergies (~1980) Mumps (~1953) Measles (~1952) Chicken pox (~1952) Peptic ulcer disease (~1970) Skin cancer (~2006) Basal cell carcinoma (2017) Melanoma (Unknown) Hypertension (Unknown) Hyperlipemia (Unknown) Idiopathic gout (02/11/15) Mixed hyperlipidemia (02/11/15) Essential hypertension (02/11/15) Surgical History Hx of shoulder surgery (~1972) Family History Father Peritonitis Grandfather No problems noted. Grandmother No problems noted. Mother Dementia Grandfather History of heart disease Grandmother No problems noted. Social History household members: spouse Smoking Status: Former smoker Tobacco: How many years used: 30 second hand exposure: Yes (sometimes, but I try to avoid it.) alcohol intake: current substance use type: does not use Assessment & Plan Assessment & Plan narrative: 1. Bowel obstruction secondary to incarcerated sigmoid bowel in left inguinal hernia secondary to severe constipation Now resolved. Diet is being advanced and he is having return of bowel function. 2. Incarcerated inguinal hernia, status post repair Remains on Zosyn therapy per General surgery's recommendation. He is afebrile. Will repeat labs tomorrow. 3. Hypokalemia Potassium is down to 2.7 today. He is continuing aggressive potassium repletion with 40 mEq q.6 hours being given through the day today in addition to the 10 mEq daily. Will plan to recheck labs in the morning. 4. Hypertension Continues on chlorthalidone, metoprolol. 5. Atrial fibrillation He was regular by exam today. 6. Gout Continues allopurinol. Code status Full Prophylaxis On heparin Disposition Plan to discharge home when his potassium has normalized and he is mobilizing a bit better. Time-Based Coding :: [TOTAL MINUTES] spent with patient and on the chart (including review of chart, obtaining history, exam, reviewing outside data, placing orders, documenting exam and treatment plan, and counseling patient) on [DATE].
[2025-03-22 20:00] VITALS: BP 116/57; PULSE 69; RESP 18; TEMP 36.4; O2SAT 98
[2025-03-22] MEDS: ATORVASTATIN 20 MG TABLET PO (20:53)
[2025-03-23 04:00] VITALS: BP 137/67; PULSE 63; RESP 20; TEMP 36.4; O2SAT 94
[2025-03-23 06:06] LABS: Add Manual Diff / Slide Review NO; Hematocrit 30.5 % (41-53); Hemoglobin 10.4 g/dL (13.5-17.5); Lymphocytes Absolute Auto 1900 /uL (1100-4500); Mean Corpuscular HGB Conc 34.1 % (30-36); Mean Corpuscular Hemoglobin 30.1 PG (26-34); Mean Corpuscular Volume 88.5 fL (80-100); Platelet Count 409 X10^3/uL (150-400)
[2025-03-23] MEDS: PIPERACILLIN/TAZO 3.375 GM in SODIUM CHLORIDE 0.9% 100 ML IV (06:06)
[2025-03-23] MEDS: PANTOPRAZOLE DR 40 MG TABLET PO (06:06)
[2025-03-23 06:21] LABS: Blood Urea Nitrogen 10 mg/dL (9-20); Calcium 7.7 mg/dL (8.4-10.2); Carbon Dioxide 27 mmol/L (22-32); Chloride 107 mmol/L (98-107); Estimated Glomerular Filt Rate > 60 mL/min (>60); Glucose 99 mg/dL (70-99); HEMOLYSIS < 15 (0-50); Potassium 2.9 mmol/L (3.4-5.1); Sodium 138 mmol/L (137-145)
[2025-03-23 07:59] LABS: HEMOLYSIS < 15 (0-50); Potassium 3.0 mmol/L (3.4-5.1)
[2025-03-23] MEDS: POTASSIUM CHLORIDE 20 MEQ/15 ML UDC 40 MEQ PO (09:09)
[2025-03-23] MEDS: CHLORTHALIDONE 25 MG TABLET 12.5 MG PO (09:09)
[2025-03-23] MEDS: HEPARIN 5,000 UNIT/ML VIAL 5000 UNIT SUBCUT (09:09)
[2025-03-23 09:10] VITALS: RESP 16; TEMP 36.7; O2SAT 96
[2025-03-23 09:12] VITALS: BP 125/63; PULSE 74
[2025-03-23] MEDS: SODIUM CHLORIDE 0.9% FLUSH 10 ML IV (09:12)
[2025-03-23] MEDS: METOPROLOL ER 50 MG TABLET PO (09:12)
[2025-03-23] MEDS: SODIUM CHLORIDE 0.9% 1,000 ML 100 ML IV (09:12)
[2025-03-23 09:46] LABS: HEMOLYSIS < 15 (0-50); Potassium 3.3 mmol/L (3.4-5.1)
--- NOTE | 2025-03-23 11:52 | P.PN_ITS ---
Subjective Subjective Date Patient Seen: 03/23/25 Interval history: The patient is doing well and has no complaints. He has tolerating a regular diet and continues to pass stool and flatus Exam Vital Signs (past 8 hours): - 03/23/25 04:00 03/23/25 09:10 03/23/25 09:12 Temperature 97.6 F 98.0 F Pulse Rate 63 74 Respiratory Rate 20 16 Blood Pressure 137/67 125/63 Pulse Oximetry 94 96 Oxygen Flow Rate 0 0 Oxygen Delivery Method Room Air Oxygen Flow Rate 0 Narrative Exam Narrative: Essentially unchanged from yesterday and the wound continues to be clean without induration, erythema, discharge, or ecchymosis Objective Labs 03/23/25 04:16 03/23/25 04:16 Labs: Laboratory Results - last 24 hr 03/22/25 03/23/25 03/23/25 17:00 04:16 04:16 WBC 9.5 RBC 3.45 L Hgb 10.4 L Hct 30.5 L MCV 88.5 MCH 30.1 MCHC 34.1 RDW 13.7 Plt Count 409 H Neut % (Auto) 66.9 Lymph % (Auto) 20.0 L [place] % (Auto) 9.8 Eos % (Auto) 2.5 Baso % (Auto) 0.8 Neut # (Auto) 6400 Lymph # (Auto) 1900 [place] # (Auto) 900 Eos # (Auto) 200 Baso # (Auto) 100 Sodium 138 Potassium 3.7 2.9 L 3.0 L Chloride Carbon Dioxide BUN Creatinine Estimated GFR BUN/Creatinine Ratio Glucose Calcium 03/23/25 04:16 WBC RBC Hgb Hct MCV MCH MCHC RDW Plt Count Neut % (Auto) Lymph % (Auto) [place] % (Auto) Eos % (Auto) Baso % (Auto) Neut # (Auto) Lymph # (Auto) [place] # (Auto) Eos # (Auto) Baso # (Auto) Sodium Potassium 3.3 L Chloride 107 Carbon Dioxide 27 BUN 10 Creatinine 0.71 Estimated GFR > 60 BUN/Creatinine Ratio 14.1 Glucose 99 Calcium 7.7 L FORMERLY [facility], 1928–1983 Medical History Mitral valve regurgitation Acne (~1964) Fever (~1972) Allergies (~1980) Mumps (~1953) Measles (~1953) Chicken pox (~1953) Peptic ulcer disease (~1970) Skin cancer (~2007) Basal cell carcinoma (2017) Melanoma (Unknown) Hypertension (Unknown) Hyperlipemia (Unknown) Idiopathic gout (02/11/15) Mixed hyperlipidemia (02/11/15) Essential hypertension (02/11/15) Surgical History Hx of shoulder surgery (~1971) Family History Father Peritonitis Grandfather No problems noted. Grandmother No problems noted. Mother Dementia Grandfather History of heart disease Grandmother No problems noted. Social History household members: spouse Smoking Status: Former smoker Tobacco: How many years used: 30 second hand exposure: Yes (sometimes, but I try to avoid it.) alcohol intake: current substance use type: does not use Assessment & Plan Assessment and plan (1) Inguinal hernia: Qualifiers: Laterality: unilateral Obstruction and gangrene presence: without obstruction or gangrene Recurrence: not specified as recurrent Qualified Code(s): K40.90 - Unilateral inguinal hernia, without obstruction or gangrene, not specified as recurrent Status: Acute (2) Small bowel obstruction: Status: Acute (3) Hypokalemia: Status: Acute (4) Mitral valve regurgitation: Qualifiers: Cardiac valve disease etiology: nonrheumatic Qualified Code(s): I34.0 - Nonrheumatic mitral (valve) insufficiency Status: Acute Plan It is okay from a surgical point of view for the patient to be discharged to home today. I recommend a follow up appointment with 1 of the local surgeons in 7-10 days. Time-Based Coding :: [TOTAL MINUTES] spent with patient and on the chart (including review of chart, obtaining history, exam, reviewing outside data, placing orders, documenting exam and treatment plan, and counseling patient) on [DATE]. [employer] Document charge(s): Yes
[2025-03-23] MEDS: POTASSIUM CHLORIDE 20 MEQ TAB 40 MEQ PO (14:42)
--- NOTE | 2025-03-23 15:10 | PC.NURSE ---
Pt discharged home at 1510, escorted off floor in wheelchair accompanied by spouse and hospital staff. IV removed, discharge teaching completed including new medications, wound care and follow up appointments. Patient left the floor with all belongings.
--- NOTE | 2025-03-23 18:31 | P.DS_ITS ---
History of Present Illness History of Present Illness Chief complaint: Bowel Blockage for 5 days Narrative: This is a 74-year-old male with a history of gout, hypertension, malignant melanoma and hyperlipidemia who presents with acute bowel obstruction related to severe obstipation and a left inguinal hernia. He has been evaluated by General surgery with the conclusion that his severe constipation has entrapped portions of his sigmoid colon in the inguinal hernia causing significant distention. An attempt to clear the stool with enema and NG tube prior to attempts for relief of bowel obstruction and hernia surgery is the plan. The hernia has been present for about a year and the distention, nausea, vomiting for about 1 week. The white blood count is 15.3. Discharge Providers Provider Date of admission: 03/18/25 15:37 Discharge Date: 03/23/25 Primary care physician: Lisseth Kinney DO Consults: 03/20/25 16:06 Consult to General Pediatrics Routine Comment: Consulting Provider: Pam Perez Reason for consultation: incarcerated hernia with bowel obstruction Has provider been notified: Yes Discharge provider: Leisa Salvador MD Summary Hospital Course Discharge Diagnosis: 1. Bowel obstruction secondary to incarcerated sigmoid bowel in left inguinal hernia secondary to severe constipation, resolved 2. Incarcerated left inguinal hernia, status post repair 3. Hypokalemia,, improving 4. Hypertension, chronic, stable 5. Atrial fibrillation 6. Gout, chronic, stable Hospital Course: 74-year-old male with gout, hypertension, melanoma, hyperlipidemia who was admitted with an acute bowel obstruction related to severe constipation and left inguinal hernia. Patient underwent repair of the chronically incarcerated left inguinal hernia with mesh on March 20. His postoperative course was uncomplicated. His diet was slowly advanced and he had gradual return of bowel function. He did have difficulties with hypokalemia which was repleted and gradually improved. There is a leti of 2.7 on March 22, but by the time of discharge his potassium was up to 3.3. He is discharging home on oral potassium replacement. He is encouraged to take 20 mEq of potassium daily due April 09. It is expected by then he will be back to eating and drinking normally. He was also advised to take MiraLax for his bowels to prevent ongoing difficulties with constipation. He planned to take only Tylenol for pain at the time of discharge. He states he does not tolerate oxycodone in the last time he took it he had intense nausea and vomiting. I did encourage him to fill the prescription per Dr. Cowart recommendations. Advised if he needed he could always try 1/2 tablet of oxycodone and to ensure he had some food in his stomach prior to taking it. I offered to prescribe an antiemetic but he declined. He had been rating his pain at 3/10 and felt he would be managing reasonably well with Tylenol alone. I did encourage him to take up to 1 g 3 times daily. He will be following up with General surgery on an outpatient basis. He is discharged in stable condition. Status at Discharge Cognitive/behavioral status at discharge: oriented and at baseline, oriented Functional status at discharge: independent ambulation Overall status at discharge: patient is progressing back to baseline Time Spent with Patient Time spent: Greater than 30 minutes Exam Vital Signs (past 8 hours): Oxygen Delivery Method Room Air Oxygen Flow Rate 0 Narrative Exam Narrative: GEN: Elderly male, very pleasant, Alert and oriented x 3, NAD HEENT:NC, Face symmetric CHEST: Respiratory excursions symmetric, CTAB CV: RRR, 2/6 systolic murmur heard best at the left sternal border, no R/G ABD: Soft, NT/ND, BT present in all 4 quadrants, no organomegaly or masses EXTR: warm, well perfused, no C/C/E SKIN: warm and dry, no rash NEURO: Alert and oriented x 3, nonfocal Objective Labs 03/23/25 04:16 03/23/25 04:16 Labs: Laboratory Results - last 24 hr 03/23/25 03/23/25 03/23/25 04:16 04:16 04:16 WBC 9.5 RBC 3.45 L Hgb 10.4 L Hct 30.5 L MCV 88.5 MCH 30.1 MCHC 34.1 RDW 13.7 Plt Count 409 H Neut % (Auto) 66.9 Lymph % (Auto) 20.0 L [place] % (Auto) 9.8 Eos % (Auto) 2.5 Baso % (Auto) 0.8 Neut # (Auto) 6400 Lymph # (Auto) 1900 [place] # (Auto) 900 Eos # (Auto) 200 Baso # (Auto) 100 Sodium 138 Potassium 2.9 L 3.0 L 3.3 L Chloride 107 Carbon Dioxide 27 BUN 10 Creatinine 0.71 Estimated GFR > 60 BUN/Creatinine Ratio 14.1 Glucose 99 Calcium 7.7 L PFSH Medical History Mitral valve regurgitation Acne (~1964) Fever (~1972) Allergies (~1980) Mumps (~1953) Measles (~1952) Chicken pox (~1952) Peptic ulcer disease (~1969) Skin cancer (~2006) Basal cell carcinoma (2017) Melanoma (Unknown) Hypertension (Unknown) Hyperlipemia (Unknown) Idiopathic gout (02/11/15) Mixed hyperlipidemia (02/11/15) Essential hypertension (02/11/15) Surgical History Hx of shoulder surgery (~1971) Family History Father Peritonitis Grandfather No problems noted. Grandmother No problems noted. Mother Dementia Grandfather History of heart disease Grandmother No problems noted. Social History household members: spouse Smoking Status: Former smoker Tobacco: How many years used: 30 second hand exposure: Yes (sometimes, but I try to avoid it.) alcohol intake: current substance use type: does not use Discharge Plan Discharge Plan Patient Disposition: Home Discharge orders & Medications Prescriptions: New oxycodone 5 mg tablet 5 mg PO Q8H PRN (Reason: pain) Qty: 20 0RF Continued ascorbate calcium (vitamin C) 500 mg tablet 500 mg PO DAILY multivitamin [Multiple Vitamins] 1 EACH tablet 1 tab PO QDAY Qty: 0 [VITAMIN D3] 1,000 iu PO SEE INSTRUCTIONS Qty: 0 Calcium See Rx Instructions .ROUTE .COMPLEX Rx Instructions: 1 tab PO daily. vitamin B complex tablet 1 tab PO .every other day aspirin [Adult Low Dose Aspirin] 81 mg tablet,delayed release (DR/EC) 81 mg PO DAILY allopurinol 300 mg tablet 300 mg PO DAILY Qty: 90 3RF amlodipine 10 mg tablet 10 mg PO Q DAY Qty: 90 3RF rosuvastatin [Crestor] 10 mg tablet 10 mg PO DAILY Qty: 90 3RF metoprolol succinate [Toprol XL] 50 mg tablet extended release 24 hr 50 mg PO QDAY Qty: 90 3RF chlorthalidone 25 mg tablet 12.5 mg PO DAILY Qty: 45 3RF potassium chloride 10 mEq tablet extended release 10 meq PO DAILY Qty: 90 3RF Follow up/Referrals: Lisseth Kinney DO [Primary Care Provider, [facility]] Diet/Activity/Treatments Diet: Diet as Tolerated Activity: As tolerated Oxygen: N/A Visit Report/Discharge Packet Instructions: DI for Prescription Opioid Use, [facility]: Wound Care Stand Alone Forms: Patient Portal/API, Stroke Signs & Symptoms, Surgery Discharge Discharge Data Primary Care Provider: Lisseth Kinney
== END 2025-03-23 15:16 | disposition home or self-care (01) | DRG 352 ==
LOC: ED 12:42 → AC 15:37
PROVIDERS: Family Medicine; Internal Medicine; Pharmacist Pharmacist Clinician (PhC)/ Clinical Pharmacy Specialist; Surgery Surgical Critical Care; Admitting Provider Family Medicine; Emergency Provider Student in an Organized Health Care Education/Training Program; PCP Family Medicine; Referring Provider Student in an Organized Health Care Education/Training Program; Visit Provider Family Medicine
PROC: 0YU60JZ Supplement Left Inguinal Region with Synthetic Substitute, Open Approach (ICD-10-PCS; CPT 49000; principal; 2025-03-20 09:45)
DX: K40.30 Unilateral inguinal hernia, with obstruction, without gangrene, not specified as recurrent (principal); K59.00 Constipation, unspecified; I10 Essential (primary) hypertension; M10.9 Gout, unspecified; I48.91 Unspecified atrial fibrillation; I34.0 Nonrheumatic mitral (valve) insufficiency; E87.6 Hypokalemia; E78.5 Hyperlipidemia, unspecified; Z85.820 Personal history of malignant melanoma of skin; Z87.891 Personal history of nicotine dependence
CPT/HCPCS: 36415; 71045; 71046; 74018; 74177; 80048; 80053; 83605; 83690; 83735; 84132; 84443; 85025; 87040; 93005; 96365; 96366; 96375; 96376; 99284; C1781; J0696; J1100; J1644; J2060; J2405; J2470; J2543; J2704; J3010; J3490; J7030; J7050; J7120; Q9967